=== PATIENT | female | born 1960 | race Caucasian/White ===

== ENCOUNTER 2016-08-15 04:03 | Emergency (ER) | payer OTHER ==
[~2016-08-15] VITALS: Ht 149.9 cm; Wt 87.3 kg
[~2016-08-15 04:03] MED LIST: 0.9126SP NS; ACET-171 PO; ACET1TAB42 PO; ALBU8.5H2 INHALATION; BECL8.7A6 IH; CHOL100043 PO; CITA20TA11 PO; DIAZ5TAB3 PO; FLUT9.9S NS; GABA-500 PO; HYDR-656 PO; HYDR50CA PO; KETO10DR4 AFFECT_EYE; LETR2.5T4 PO; LEVO50TA39 PO; LORA10CA PO; METO25TA3 PO; MULT-1018 PO; OMEP20CA11 PO; ONDA-54 PO; OXYC1TAB24 PO; POTA10CA42 PO; PROM25TA14 PO; ROPI1TAB3 PO; SILV25CR4 TP; TAMO20TA4 PO; TRAM50TA2 PO
[2016-08-15 04:07] VITALS: BP 146/74; PULSE 102; RESP 20; O2SAT 98
--- NOTE | 2016-08-15 04:14 | ED.REPORT ---
HPI-URI / Cough / Cold Date of Service Aug 15, 2016 ED Provider: Brett Thompson MD Patient is a 55 year old female with a history of breast cancer in remission who presents to the ED complaining of a persistent cough that has been present for the past 2.5 weeks, with increased difficulty breathing tonight. Patient also has a sore throat, which makes it painful for her to swallow. Patient states that she has nearly passed out due to coughing. Patient reports having swelling in her legs but denies leg pain, a history of congestive heart failure or fluid overload. The patient denies a fever or chills. Nursing Notes Stated Complaint: COUGH Chief Complaint: General Complaint Nursing Notes Reviewed: Yes Allergies: Coded Allergies: Penicillins (Verified Allergy, Severe, 08/15/16) latex (Verified Allergy, Severe, 08/15/16) prochlorperazine (Verified Allergy, Severe, 08/15/16) hydrocodone (Verified Allergy, Intermediate, rash, 08/15/16) diltiazem (Verified Allergy, Mild, edema, 08/15/16) TAPE (Verified Allergy, Unknown, 08/15/16) aspirin (Verified Allergy, Unknown, 08/15/16) ibuprofen (Verified Allergy, Unknown, 08/15/16) oxycodone (Verified Allergy, Unknown, Tolerates percocet, 08/15/16) Scheduled Albuterol HFA (Proair HFA) 8.5 Gm Hfa.aer.ad 2 PUFFS INHALATION q6hrs Beclomethasone Dipropionate (Qvar) 8.7 Gm Aer.w.adap 2 PUFFS IH BID Cholecalciferol (Vitamin D3) (Vitamin D) 1,000 Unit Tablet 1,000 UNIT PO DAILY Citalopram (Citalopram) 20 Mg Tablet 40 MG PO DAILY Fluticasone Propionate (Flonase Allergy Relief) 50 Mcg/Actuation [place].susp 2 SPRAYS NS DAILY Gabapentin (Gabapentin) 100 Mg Capsule 100 MG PO HS Ketotifen Fumarate (Alaway) 10 Ml Drops 10 ML AFFECT_EYE BID Letrozole (Letrozole) 2.5 Mg Tablet 2.5 MG PO DAILY Levothyroxine (Levoxyl) 50 Mcg Tablet 50 MCG PO DAILY Loratadine (Claritin) 10 Mg Capsule 10 MG PO DAILY Metoprolol Succinate ER (Toprol XL) 25 Mg Tablet 25 MG PO DAILY Multivitamin (Multi Vitamin Daily) 1 Each Tablet 1 EACH PO DAILY Omeprazole (Omeprazole) 20 Mg Capsule.dr 40 MG PO DAILY Potassium Chloride (Potassium Chloride) 10 Meq Capsule.er 10 MEQ PO DAILY TAKE WITH FOOD Ropinirole (Ropinirole) 1 Mg Tablet 1-2 MG PO HS Silver Sulfadiazine (Ssd) 25 Gm Cream..g. 25 GM TP BID Tamoxifen Citrate (Tamoxifen Citrate) 20 Mg Tablet 20 MG PO DAILY hydrOXYzine Hcl (HydrOXYzine Hcl) 25 Mg Tablet 50 MG PO HS Scheduled PRN 0.9 % Sodium Chloride (Nasal Mist) 126 Ml [place] 126 ML NS prn PRN PRN dry nose Acetaminophen (Acetaminophen) 500 Mg Tablet 500 MG PO Q6H PRN PRN For Pain Acetaminophen/Codeine 300-30mg (Acetaminophen/Codeine 300-30mg) 1 Tablet Tablet 1-2 TABLET PO Q4 PRN PRN For Moderate Pain Diazepam (Diazepam) 5 Mg Tablet 5 MG PO TID PRN PRN For Anxiety Hydroxyzine Pamoate (Vistaril) 50 Mg Capsule 50 MG PO TID PRN PRN For Anxiety or Agitation Ondansetron (Ondansetron) 8 Mg Tablet 8 MG PO q12 hr PRN PRN For Nausea Promethazine (Promethazine) 25 Mg Tablet 0 PO Q6H PRN PRN For Nausea Tramadol (Tramadol) 50 Mg Tablet 50-100 MG PO Q6 PRN PRN For Pain Tramadol (Tramadol) 50 Mg Tablet 50-100 MG PO Q4H PRN PRN For Pain oxyCODONE-Acetaminophen 5-325 mg (oxyCODONE-Acetaminophen 5-325 mg) 1 Each Tablet 0.5-2 TAB PO Q6H PRN PRN For Pain General Time Seen by MD: 04:09 Chief Complaint Cough, non-productive, Sore throat, Upper resp infection Hx Obtained From: Patient Arrived By: Walk-in Onset Occurred: More than a week ago... (1.5 weeks ago) Symptom Duration: Since onset Severity: Current: No pain currently Severity: Maximum: No pain Recent Healthcare: No recent doctor visit, No recent hospitalization Similar Sx Previous: No Past Medical History Past Medical History 1. Stage II, T2 N1 left-sided invasive ductal carcinoma in remission, s/p mastectomy 2. Hypothyroidism on Synthroid. 3. Anemia, macrocytic. 4. Pancreatitis 5. PVCs 6. 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 Musculoskeletal: Reports: Extremity swelling, Denies: Extremity pain Physical Exam Initial Vital Signs Vital Signs (First) Date Time Temp Pulse Resp B/P Pulse Ox O2 Delivery O2 Flow Rate FiO2 08/15/16 04:07 37.2 102 20 146/74 98 Room Air Initial VS: Reviewed, Vital signs abnormal Skin: Warm, Dry, No cyanosis Neurologic: Alert, Oriented, Nonfocal Psychiatric: Mood/affect normal, Behavior normal, Normal thought content General/Constitutional: Awake, Alert, No acute distress ENT: Airway patent, Mucous membranes moist Respiratory / Chest: Breath sounds = bilat, No respiratory distress, No rales, No rhonchi, No wheezing periodic dry cough Head / Eyes: Normocephalic, PERRL Neck: Supple, No JVD Cardiovascular: Heart rate NL, Regular rhythm, Heart sounds NL, No murmurs Abdomen: Soft, Non-tender, No guarding, No rebound Upper Extremity / MS: No deformity, Neurologic intact, Vascular intact Lower Extremity / Pelvis / MS: No deformity, Neurologic intact, Vascular intact +1 pitting edema of both ankles Interpretation & Diagnostics ECG Interpretation ECG Interpretation: Sinus rhythm, Rate 94 Ventricular trgeminy Left ventricular hypertrophy Time: 05:00 Interpreted by: ED physician Normal ECG Interpretation: No acute ischemic changes, No change from prior ECGs (01/27/2016) X-Ray Chest Interpretation Chest Xray Interpretation: Impression: No acute cardiopulmonary process. View: Portable Interpretation / Wet Read by: Wet read ED physician Reviewed Previous Films: No change Re-Eval/Medical Decision Med Decision/Clinical Course 55-year-old female who has cough for the last 2 and half weeks. Workup was initiated. There is some difficulty getting an IV and blood draw so we are still awaiting labs. Her care will be turned over at change shift to Dr. Franklin. Source of Hx: Old records Discharge & Departure Shift Change Sign-Out Patient Care Transferred: Yes Discussed Complaint(s): Yes Laboratory Evaluation: Ordered, not yet done Imaging Studies: Done, wet read by me Impression: Primary Impression: Cough Referrals: Michelle Perez MD (PCP) Care Transferred to: Dr. Franklin Care Transferred at: 06:00 Scribe Attestation Portions of this note were transcribed by Linda Mata. I, Dr. Thompson personally performed the history, physical exam and medical decision-making; I reviewed and confirmed the accuracy of the information in the transcribed note. Signed by: Anil Juarez, 08/15/2016 0548 copies to: Michelle Perez MD, Howard L MD Aug 15, 2016 04:14 Linda Mata Aug 15, 2016 04:30
[2016-08-15 05:45] VITALS: BP 146/76; PULSE 96; RESP 16; O2SAT 99
[2016-08-15 06:12] LABS: BASOPHILS % (AUTO) 0.2 % (0-3); EOSINOPHILS % (AUTO) 6.2 % (0-5); MONOCYTES % (AUTO) 9.9 % (4-12); Mean Corpuscular Hemoglobin 32.2 pg (27.0-35.0); Mean Corpuscular Volume 100.9 fL (81-100); NEUTROPHILS % (AUTO) 59.4 % (40-74); Platelet Count 237 bil/L (150-400)
[2016-08-15 06:23] LABS: TROPONIN T 0.01 ug/L (0.0-0.011)
[2016-08-15] MEDS ORDERED: GUAI400T57 PO (06:30)
[2016-08-15 07:28] VITALS: BP 127/60; PULSE 101; RESP 25; O2SAT 93
--- NOTE | 2016-08-15 09:00 | DRSVH ---
PROCEDURE: X-RAY CHEST ONE VIEW, PORTABLE ([id number]) INDICATIONS: cough TECHNIQUE: One view of the chest was acquired. COMPARISON: [facility], CT, CT CHEST W CON, 04/27/2016, 7:36. [facility], C R, XR CHEST 1VW (PORTABLE), 01/27/2016, 17:01. FINDINGS: Surgical changes and devices: None. Lungs and pleura: No pleural effusions or pneumothorax. Lungs are clear. Mediastinum: Mediastinal contours appear normal. Heart size is normal. Bones and chest wall: No suspicious bony lesions. Overlying soft tissues appear unremarkable. IMPRESSION: No acute cardiopulmonary disease. Dictated by: Mitchell Woods RRA Interpreted: Nedra Jay MD on 08/15/2016 at 8:59 Transcribed by: BREANNA on 08/15/2016 at 9:00 Approved by: Nedra Jay MD, PhD on 08/15/2016 at 17:14
[2016-10-31] MEDS ORDERED: RANI150T11 PO (10:36)
== END 2016-08-15 07:29 | disposition home or self-care (01) ==
LOC: SED 04:03
DX: J06.9 Acute upper respiratory infection, unspecified (principal); R05 Cough; M79.89 Other specified soft tissue disorders; K21.9 Gastro-esophageal reflux disease without esophagitis; E03.9 Hypothyroidism, unspecified; Z88.0 Allergy status to penicillin; Z88.5 Allergy status to narcotic agent; Z88.8 Allergy status to other drugs, medicaments and biological substances; Z91.040 Latex allergy status

== ENCOUNTER 2016-09-23 14:16 | Emergency (ER) | payer OTHER ==
[~2016-09-23] VITALS: Ht 149.9 cm; Wt 88.6 kg
[~2016-09-23 14:16] MED LIST changes: +GUAI400T57 PO
[2016-09-23 14:18] VITALS: BP 145/73; PULSE 88; RESP 15; O2SAT 97
--- NOTE | 2016-09-23 15:38 | ED.REPORT ---
HPI-Chest Pain 40 and Over Date of Service Sep 23, 2016 ED Provider: Doc,Ed MD The patient is a 55 year old developmentally delayed female with history of breast cancer in remission s/p mastectomy, hypothyroidism, anemia, pancreatitis , restless legs, peripheral edema, generalized anxiety disorder, and GERD, who presents to the emergency department complaining of left sided chest pressure and left axillary pain that began 3 days ago. The pain is intermittent and does resolve completely. She also complains of fatigue, tingling in both hands, fatigue, and feeling "overheated." She denies history of cardiac disease. She was seen at [facility] yesterday and was admitted for about 12 hours and discharged home with a referral for an outpatient stress test. Nursing Notes Stated Complaint: CHEST PAIN Chief Complaint: Chest Pain-Non Cardiac Nature Nursing Notes Reviewed: Yes Allergies: Coded Allergies: Penicillins (Verified Allergy, Severe, 08/15/16) latex (Verified Allergy, Severe, 08/15/16) prochlorperazine (Verified Allergy, Severe, 08/15/16) hydrocodone (Verified Allergy, Intermediate, rash, 08/15/16) diltiazem (Verified Allergy, Mild, edema, 08/15/16) TAPE (Verified Allergy, Unknown, 08/15/16) aspirin (Verified Allergy, Unknown, 08/15/16) ibuprofen (Verified Allergy, Unknown, 08/15/16) oxycodone (Verified Allergy, Unknown, Tolerates percocet, 08/15/16) Scheduled Albuterol HFA (Proair HFA) 8.5 Gm Hfa.aer.ad 2 PUFFS INHALATION q6hrs Beclomethasone Dipropionate (Qvar) 8.7 Gm Aer.w.adap 2 PUFFS IH BID Cholecalciferol (Vitamin D3) (Vitamin D) 1,000 Unit Tablet 1,000 UNIT PO DAILY Citalopram (Citalopram) 20 Mg Tablet 40 MG PO DAILY Fluticasone Propionate (Flonase Allergy Relief) 50 Mcg/Actuation [place].susp 2 SPRAYS NS DAILY Gabapentin (Gabapentin) 100 Mg Capsule 100 MG PO HS Ketotifen Fumarate (Alaway) 10 Ml Drops 10 ML AFFECT_EYE BID Letrozole (Letrozole) 2.5 Mg Tablet 2.5 MG PO DAILY Levothyroxine (Levoxyl) 50 Mcg Tablet 50 MCG PO DAILY Loratadine (Claritin) 10 Mg Capsule 10 MG PO DAILY Metoprolol Succinate ER (Toprol XL) 25 Mg Tablet 25 MG PO DAILY Multivitamin (Multi Vitamin Daily) 1 Each Tablet 1 EACH PO DAILY Omeprazole (Omeprazole) 20 Mg Capsule.dr 40 MG PO DAILY Potassium Chloride (Potassium Chloride) 10 Meq Capsule.er 10 MEQ PO DAILY TAKE WITH FOOD Ropinirole (Ropinirole) 1 Mg Tablet 1-2 MG PO HS Silver Sulfadiazine (Ssd) 25 Gm Cream..g. 25 GM TP BID Tamoxifen Citrate (Tamoxifen Citrate) 20 Mg Tablet 20 MG PO DAILY hydrOXYzine Hcl (HydrOXYzine Hcl) 25 Mg Tablet 50 MG PO HS Scheduled PRN 0.9 % Sodium Chloride (Nasal Mist) 126 Ml [place] 126 ML NS prn PRN PRN dry nose Acetaminophen (Acetaminophen) 500 Mg Tablet 500 MG PO Q6H PRN PRN For Pain Acetaminophen/Codeine 300-30mg (Acetaminophen/Codeine 300-30mg) 1 Tablet Tablet 1-2 TABLET PO Q4 PRN PRN For Moderate Pain Diazepam (Diazepam) 5 Mg Tablet 5 MG PO TID PRN PRN For Anxiety Guaifenesin (Guaifenesin) 400 Mg Tablet 400 MG PO QID PRN PRN For Cough Hydroxyzine Pamoate (Vistaril) 50 Mg Capsule 50 MG PO TID PRN PRN For Anxiety or Agitation Ondansetron (Ondansetron) 8 Mg Tablet 8 MG PO q12 hr PRN PRN For Nausea Promethazine (Promethazine) 25 Mg Tablet 0 PO Q6H PRN PRN For Nausea Tramadol (Tramadol) 50 Mg Tablet 50-100 MG PO Q6 PRN PRN For Pain Tramadol (Tramadol) 50 Mg Tablet 50-100 MG PO Q4H PRN PRN For Pain oxyCODONE-Acetaminophen 5-325 mg (oxyCODONE-Acetaminophen 5-325 mg) 1 Each Tablet 0.5-2 TAB PO Q6H PRN PRN For Pain General Time Seen by MD: 15:38 Chief Complaint Chest pain Hx Obtained From: Patient, Other family... (sister) Arrived By: Walk-in Sudden in Onset?: Yes Onset Occurred: 3 days ago Symptom Duration: Since onset Location: : Chest left: Shoulder left Quality: Painful, Pressure Severity: Current: Mild Severity: Maximum: Severe Recent Healthcare: Recent doctor visit, Recent hospitalization Similar Sx Previous: Yes Past Medical History Past Medical History Notes: Staff Cytotechnologist: Dr. Steen Past Medical History 1. Stage II, T2 N1 left-sided invasive ductal carcinoma in remission, s/p mastectomy 2. Hypothyroidism on Synthroid. 3. Anemia, macrocytic. 4. Pancreatitis 5. PVCs 6. Restless legs and peripheral edema 7. Developmentally delayed 8. Cholelithiasis 9. Gerd 10. 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 Physical Exam Initial Vital Signs Vital Signs (First) Date Time Temp Pulse Resp B/P Pulse Ox O2 Delivery O2 Flow Rate FiO2 09/23/16 14:18 36.8 88 15 145/73 97 Initial VS: Reviewed Head / Eyes: Atraumatic, Normocephalic, PERRL ENT: Mucous membranes moist, Conjunctiva normal, No scleral icterus Neck: Supple, Non-tender, Full range of motion Back: No CVA tenderness Lymphatic: No lymphadenopathy Extremities: Vascular intact, Neuro intact, No tenderness Skin: Warm, Dry, No cyanosis Neurologic: Alert, Oriented, Nonfocal Psychiatric: Mood/affect normal, Behavior normal, Normal thought content General/Constitutional: Awake, Alert, Cooperative Respiratory / Chest: Breath sounds NL, Breath sounds = bilat, No respiratory distress, No rales, No rhonchi, No wheezing, No stridor Partially reproducible chest pain. Cardiovascular: Heart rate NL, Regular rhythm, Heart sounds NL, No gallop, No murmurs, No rubs, Peripheral circulation NL, Pulses = bilaterally, No gross BP differential Lower Ext Edema: Positive: Bilateral 2+ Abdomen: Soft, Non-tender, McBurney's non-tender, No guarding, No rebound, BS normoactive, No distention, No hernia, No palpable mass Interpretation & Diagnostics Lab Results Interpretation Test 09/23/16 16:53 Troponin T < 0.010ug/L (0.0-0.011) Lipase 104U/L (13-60) ECG Interpretation ECG Interpretation: Sinus rhythm with a rate of 90 Unchanged from EKG taken on 09/22/[address] segment changes No acute ischemia Time: 17:22 Interpreted by: ED physician Re-Eval/Medical Decision Med Decision/Clinical Course The chest x-ray from 09/21 was normal. She had 3 serial troponins between the and at 0400 were all negative. Source of Hx: Old records, Family Time of Eval: 18:57 Re-Evaluation/Progress Note: Rechecked the patient. Discussed plan for discharge. All questions were addressed. Counseled Regarding: Diagnosis, Lab results, Need for follow-up, When/why to return to ED Discharge & Departure Primary Impression: Chest pain Chest pain type: unspecified Qualified Code: R07.9 - Chest pain, unspecified Disposition: Home Discharge Condition All VS Reviewed: Yes Condition: Stable Patient Instructions: Chest Pain (ED) Additional Instructions: Thank you for entrusting us with your care today. Your workup today included: labs and an EKG. We also reviewed your records from your recent hospitalization at [facility]. At this point your workup is reassuring. It is very important that you followup with your regular doctor or Dr. Steen to further investigate these symptoms. Call tomorrow morning to schedule an appointment. Please return to the emergency department for any new or concerning symptoms. Your lipase is mildly elevated indicating some minimal inflammation of your pancreas; this should be checked again in a few days or sooner if you have much worse abdominal pain. Referrals: Michelle Perez MD (PCP) Gena Steen MD Scribchandler Attestation Portions of this note were transcribed by Missy Birmingham. I, Dr. Franklin personally performed the history, physical exam and medical decision-making; I reviewed and confirmed the accuracy of the information in the transcribed note. Signed by: Anil Mata, 09/23/2016 at 1905. copies to: Michelle Perez MD; Gena Steen MD, Kirk H MD Sep 23, 2016 15:38 Vinnie,Missy Matthew Sep 23, 2016 15:40
[2016-10-31] MEDS ORDERED: RANI150T11 PO (10:36)
== END 2016-09-23 19:45 | disposition home or self-care (01) ==
LOC: SED 14:16
DX: R07.9 Chest pain, unspecified (principal); M79.622 Pain in left upper arm; R53.83 Other fatigue; E03.9 Hypothyroidism, unspecified; D53.9 Nutritional anemia, unspecified; G25.81 Restless legs syndrome; K21.9 Gastro-esophageal reflux disease without esophagitis; F41.1 Generalized anxiety disorder; Z85.3 Personal history of malignant neoplasm of breast; Z90.12 Acquired absence of left breast and nipple; Z87.898 Personal history of other specified conditions; Z88.0 Allergy status to penicillin; Z88.8 Allergy status to other drugs, medicaments and biological substances; Z88.5 Allergy status to narcotic agent; Z88.6 Allergy status to analgesic agent

== ENCOUNTER 2016-10-17 17:27 | Inpatient (IN) | payer OTHER, MEDICAID ==
[~2016-10-17] VITALS: Ht 149.9 cm; Wt 88.0 kg
[2016-10-17 17:30] VITALS: BP 150/80; PULSE 77; RESP 16; O2SAT 98
--- NOTE | 2016-10-17 18:05 | ED.REPORT ---
HPI-Chest Pain 40 and Over Date of Service October 17, 2016 ED Provider: Lino Martinez MD A 56 year old developmentally-delayed female with a medical history including hypothyroidism, PVCs, GERD, and left-sided ductal carcinoma s/p mastectomy presents to the ED with waxing and waning chest pain onset 11:00 this morning after receiving the injection for a stress test at [facility]. The stress test imaging was not completed, and patient was immediately seen in the [facility] emergency room where she received a negative cardiac work-up. However, the patient's chest pain continues to persist, lasting up to 30 minutes at a time. It is rated 7/10 at the worst and described as "tightness," with radiation to her left jaw and left arm. Associated symptoms include abdominal pain, headache , and one week of hematochezia. The patient denies diaphoresis, nausea, dysuria , hematuria, shortness of breath, or other symptoms. The patient was given ASA and Nitro at onset, which relieved her pain. She presents now with residual 3/ 10 chest pain. Nursing Notes Stated Complaint: CHEST PAIN Chief Complaint: Chest Pain Nursing Notes Reviewed: Yes ([employer], [employer] not reconciled) Allergies: Coded Allergies: Penicillins (Verified Allergy, Severe, 10/17/16) latex (Verified Allergy, Severe, 10/17/16) prochlorperazine (Verified Allergy, Severe, 10/17/16) hydrocodone (Verified Allergy, Intermediate, rash, 10/17/16) diltiazem (Verified Allergy, Mild, edema, 10/17/16) TAPE (Verified Allergy, Unknown, 10/17/16) aspirin (Verified Allergy, Unknown, 10/17/16) ibuprofen (Verified Allergy, Unknown, 10/17/16) oxycodone (Verified Allergy, Unknown, Tolerates percocet, 10/17/16) Scheduled Cholecalciferol (Vitamin D3) (Vitamin D) 1,000 Unit Tablet 1,000 UNIT PO DAILY Citalopram (Citalopram) 40 Mg Tablet 40 MG PO HS Fexofenadine (Fexofenadine) 180 Mg Tablet 180 MG PO DAILY Fluticasone Furoate (Arnuity Ellipta) 100 Mcg Blst.w.dev 1 PUFF INHALATION DAILY Fluticasone Propionate (Flonase Allergy Relief) 50 Mcg/Actuation [place].susp 2 SPRAYS NS DAILY Furosemide (Furosemide) 40 Mg Tablet 40 MG PO DAILY Gabapentin (Gabapentin) 100 Mg Capsule 100 MG PO HS Lansoprazole DR (Prevacid) 30 Mg Capsule 30 MG PO DAILY Levothyroxine (Levoxyl) 50 Mcg Tablet 50 MCG PO DAILY Metoprolol Succinate ER (Toprol XL) 25 Mg Tablet 25 MG PO DAILY Multivits&Mins/FA/Coenzyme Q10 (Aquadeks Chewable Tablet) 1 Each Tab.chew 1 EACH PO DAILY Ropinirole (Ropinirole) 1 Mg Tablet 2 MG PO HS Tamoxifen Citrate (Tamoxifen Citrate) 20 Mg Tablet 20 MG PO DAILY Scheduled PRN 0.9 % Sodium Chloride (Nasal Mist) 126 Ml [place] 2 SPRAYS NS BID PRN PRN dry nose Acetaminophen (Pain Relief) 325 Mg Capsule 650 MG PO QID PRN PRN For Pain Albuterol Sulfate (Ventolin HFA Inhaler) 200 Puff/18 Gm Inhaler 2 PUFFS INHALATION QID PRN PRN For Shortness of Breath Bisacodyl (Dulcolax) 5 Mg Tablet.dr 10 MG PO DAILY PRN PRN For Constipation Diazepam (Diazepam) 2 Mg Tablet 2 MG PO BID PRN PRN anx Tramadol (Tramadol) 50 Mg Tablet 50-100 MG PO Q6 PRN PRN For Pain General Time Seen by MD: 18:02 Chief Complaint Chest pain Hx Obtained From: Patient Arrived By: Walk-in Sudden in Onset?: Yes Onset Occurred: 5 - 8 hours ago Symptom Duration: Since onset Location: : Chest left: Chest right Quality: Painful (Tightness) Radiation: : Arm left: Jaw Severity: Current: Moderate Severity: Maximum: Moderate Context Related History: Reports: GERD Recent Healthcare: Recent doctor visit Past Medical History Past Medical History Notes: Lighter: Dr. Steen Past Medical History 1. Stage II, T2 N1 left-sided invasive ductal carcinoma in remission, s/p mastectomy 2. Hypothyroidism on Synthroid. 3. Anemia, macrocytic. 4. Pancreatitis 5. PVCs 6. Restless legs and peripheral edema 7. Developmentally delayed 8. Cholelithiasis 9. Gerd 10. 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 Female: Denies: Dysuria, Hematuria Physical Exam Initial Vital Signs Vital Signs (First) Date Time Temp Pulse Resp B/P Pulse Ox O2 Delivery O2 Flow Rate FiO2 10/17/16 17:30 35.9 77 16 150/80 98 Room Air Initial VS: Reviewed, Vital signs normal Head / Eyes: Atraumatic, Normocephalic ENT: Conjunctiva normal, No scleral icterus Neck: Supple, Full range of motion Skin: Warm, Dry, No cyanosis Neurologic: Alert, Oriented, Nonfocal Psychiatric: Mood/affect normal, Behavior normal, Normal thought content General/Constitutional: Awake, Alert, No acute distress Respiratory / Chest: Breath sounds NL, Breath sounds = bilat, No respiratory distress Cardiovascular: Heart rate NL, Regular rhythm, Heart sounds NL Trace edema in bilateral lower extremities Abdomen: Soft, Non-tender Interpretation & Diagnostics Interpretation & Diagnostics: Labs performed today at [facility] including: WBC 3.2, hemoglobin 12, hematocrit 36.9, platelet count 185 Sodium 141, potassium 4.1, chloride 108, CO2 23, and 20, creatinine 1.27, glucose 80, ALT 22, AST 25, total bili 0.3, alkaline phosphatase 92 Troponin less than 0.010, repeated troponin less than 0.010 INR 1 URINE DIPSTICK: Bedside Urine Specific Dewitt * 1.015 Bedside Urine pH * 5 Bedside Urine Leukocyte Esterase * Negative Bedside Urine Nitrite * Negative Bedside Urine Protein * Negative Bedside Urine Glucose * Normal Bedside Urine Ketones * Negative Bedside Urine Urobilinogen * Normal Bedside Urine Bilirubin * Negative Bedside Urine Occult Blood * Negative Urine to Lab * Yes Lab Results Interpretation Result Diagram: 10/17/16 2104 Test 10/17/16 18:07 10/17/16 19:00 Troponin T < 0.010ug/L (0.0-0.011) Hold Bae Top Tube Received (Received) Hold Urine Received (Received) Lab Results Interpretation: urine dip negative ECG Interpretation ECG Interpretation: Sinus rhythm rate 71 Occasional PVCs Mild left ventricular hypertrophy, unchanged from 09/2016 No clear acute ischemic changes evident Time: 17:45 Interpreted by: ED physician ECG Interpretation: Unchanged from prior today Sinus rhythm rate 80 Occasional PVCS Mild left ventricular hypertrophy No acute interval change Time: 19:54 Interpreted by: ED physician Re-Eval/Medical Decision Med Decision/Clinical Course This is a 56-year-old female who is mild developmental delay making a complex history to obtain, presents with a concern for chest pressure discomfort, radiating to the left jaw and left arm associated shortness of breath, but is not clearly exertional. The story changes with different interview at times, making it even more difficult-but the patient does not have a known history of coronary disease, there was recent concern and the patient was undergoing initial injection for a stress test today at [facility], developed chest discomfort , and was sent to the [facility] emergency department where she had serial enzymes that were both negative, and then discharge with plans to return tomorrow to complete the stress test. She had waxing and waning chest discomfort, and so came to the emergency department here. She is still having some left-sided chest discomfort on arrival. And she uses language that does sound concerning, although the patient clinically appears quite well throughout. Her EKG reveals no clear acute ischemic changes. She received a total to supplemental nitroglycerin with relief of the chest discomfort, others she developed trace nausea and a mild headache which she received medication. She received aspirin prior to arrival earlier today. Lab work was also obtained earlier today in terms of CBC and chemistries, so these were not repeated. A troponin was obtained and was normal. At this point have a challenging patient to fully risk stratify, he does have a mild developmental delay, who does have risk factors, and uses language that is concerning-and has not completed her cardiac evaluation was already been seen once sedated outside emergency department for chest pain, was had recurrence of symptoms and now presents them or department. The plan at this point as an observation admission for continued monitoring, I discussed with cardiology and if her enzymes remain negative, we will proceed to stress testing here at this hospital tomorrow. We have called [facility] to notify them that the patient's being admitted. The patient's admitted in good condition. Source of Hx: Old records Time of Eval: 19:16 Patient Status: Condition unchanged Re-Evaluation/Progress Note: Patient's pain persists. Time of Eval: 19:36 Patient Status: Condition improved Re-Evaluation/Progress Note: Patient's chest pain is improving after Nitro but her headache has worsened and she has developed nausea. Time of Eval: 19:50 Patient Status: Condition improved Re-Evaluation/Progress Note: Patient's chest pain has resolved. She has an appointment for continued Stress Test at [facility] tomorrow morning. Discussed with patient x-ray and lab results, diagnosis, and plan for admit. Patient agrees with plan for care and all questions were addressed. Time of Eval: 20:16 Patient Status: Condition improved Re-Evaluation/Progress Note: Nursing supervisor multifocal lens, Wayne, at [facility] was informed that the patient will not be arriving for her stress test tomorrow. Consultation #1: Referral / Consult Name: Silvio Gordon MD Consulted With: Cardiology Call Returned at: 20:19 Train Dispatcher: Agrees with eval, Agrees with plan Note: Discussed patient's case Consultation #2: Referral / Consult Name: Ryland Mcarthur MD Consulted With: Hospitalist Call Returned at: 20:18 Train Dispatcher: Agrees with eval, Agrees with plan, Accepts admit Differential Diagnosis: Positive: Chest pain, acute, Negative: Aortic dissection, Congestive heart failure, Gun shot wound chest, Pneumomediastinum, Pneumonia, Pneumothorax, Pulmonary edema, Pulmonary embolism , Stab wound chest Counseled Regarding: Diagnosis, Lab results, Need for admission Discharge & Departure Primary Impression: Chest pain Chest pain type: unspecified Qualified Code: R07.9 - Chest pain, unspecified Additional Impression: Acute coronary syndrome Disposition: ADMITTED TO HOSPITAL Discharge Condition All VS Reviewed: Yes Condition: Improved Referrals: Michelle Perez MD (PCP) Gena Steen MD Attestation Portions of this note were transcribed by Brittney Alejandro. I, Dr. Martinez, personally performed the history, physical exam, and medical decision-making; I reviewed and confirmed the accuracy of the information in the transcribed note. Signed by: Anil Reardon, 10/17/2016, 21:10 copies to: Michelle Perez MD; Gena Steen MD, Matthew F MD October 17, 2016 18:04 BRITTNEY ALEJANDRO October 17, 2016 18:17
[2016-10-17] MEDS ORDERED: Nitroglycerin 2% 1 Gm Ointment TOPICAL SCH (18:20)
[2016-10-17] MEDS ORDERED: Ondansetron 2 mg/mL 2 mL Inj IVPUSH ONE (19:40)
[2016-10-17] MEDS ORDERED: HYDROmorphone 0.5 mg/0.5 mL iSecure Syringe IVPUSH ONE (19:40)
[2016-10-17] MEDS ORDERED: CITA40TA13 PO (19:43)
[2016-10-17] MEDS ORDERED: ALBU18HF INHALATION (19:43)
[2016-10-17] MEDS ORDERED: FLUT100B INHALATION (19:44)
[2016-10-17] MEDS ORDERED: FEXO-106 PO (19:44)
[2016-10-17] MEDS ORDERED: FURO40TA4 PO (19:44)
[2016-10-17] MEDS ORDERED: MULT-909 PO (19:44)
[2016-10-17] MEDS ORDERED: BISA-67 PO (19:48)
[2016-10-17] MEDS ORDERED: LANS30CA14 PO (19:48)
[2016-10-17] MEDS ORDERED: DIAZ2TAB2 PO (19:48)
[2016-10-17] MEDS ORDERED: ACET325C4 PO (19:49)
[2016-10-17] MEDS ORDERED: Atropine 1 mg/10 mL (Code) Syringe IVPUSH PRN (20:50)
--- NOTE | 2016-10-17 21:03 | PCM.HPMED ---
Subjective Date of Service October 17, 2016 Primary Provider: Admitting Physician: Ryland Mcarthur MD Primary Care Physician: Michelle Perez MD Attending Physician: Ryland Mcarthur MD Chief Complaint: Chest pain following aborted stress test History of Present Illness: Delfina Euceda is a 56 year old woman with a PMH of Stage II, T2 N1 left-sided invasive ductal carcinoma in remission s/p mastectomy, Hypothyroidism, Macrocytic anemia, pancreatitis, RLS, PVCs, GERD, gallstones, mild developmental delay, and depression who presents following an aborted stress test at [facility] which was stopped due to chest pain with radiation to the jaw and associated diaphoresis. She was taken to the [facility] ER following manifestation of symptoms and given Nitro and ASA which transiently alleviated her symptoms, Trop was negative x2 at [facility]; however given the concerning nature of the patient' s symptoms and the need to complete her stress test the patient was transferred to [facility] for further evaluation and completion of her stress test tomorrow. She states that her chest pain has been waxing and waning since onset, responsive to Nitro, and she has begun to feel nauseous which was responsive to Zofran. She states her current pain level is approximately 3/10, but that she feels as if it could return at any moment. In the ED at [facility] the patient has an additional negative Trop, and an ECG which was unchanged from her prior ECG and not indicative of any acute ST changes. Cardiology has been made aware of the patient and will follow up to complete her stress test tomorrow. Review of Systems: Comprehensive ROS negative except as listed above in the HPI Allergies Coded Allergies: Penicillins (Verified Allergy, Severe, 10/17/16) latex (Verified Allergy, Severe, 10/17/16) prochlorperazine (Verified Allergy, Severe, 10/17/16) hydrocodone (Verified Allergy, Intermediate, rash, 10/17/16) diltiazem (Verified Allergy, Mild, edema, 10/17/16) TAPE (Verified Allergy, Unknown, 10/17/16) aspirin (Verified Allergy, Unknown, 10/17/16) ibuprofen (Verified Allergy, Unknown, 10/17/16) oxycodone (Verified Allergy, Unknown, Tolerates percocet, 10/17/16) Home Medications Scheduled Cholecalciferol (Vitamin D3) (Vitamin D) 1,000 Unit Tablet 1,000 UNIT PO DAILY Citalopram (Citalopram) 40 Mg Tablet 40 MG PO HS Fexofenadine (Fexofenadine) 180 Mg Tablet 180 MG PO DAILY Fluticasone Furoate (Arnuity Ellipta) 100 Mcg Blst.w.dev 1 PUFF INHALATION DAILY Fluticasone Propionate (Flonase Allergy Relief) 50 Mcg/Actuation [place].susp 2 SPRAYS NS DAILY Furosemide (Furosemide) 40 Mg Tablet 40 MG PO DAILY Gabapentin (Gabapentin) 100 Mg Capsule 100 MG PO HS Lansoprazole DR (Prevacid) 30 Mg Capsule 30 MG PO DAILY Levothyroxine (Levoxyl) 50 Mcg Tablet 50 MCG PO DAILY Metoprolol Succinate ER (Toprol XL) 25 Mg Tablet 25 MG PO DAILY Multivits&Mins/FA/Coenzyme Q10 (Aquadeks Chewable Tablet) 1 Each Tab.chew 1 EACH PO DAILY Ropinirole (Ropinirole) 1 Mg Tablet 2 MG PO HS Tamoxifen Citrate (Tamoxifen Citrate) 20 Mg Tablet 20 MG PO DAILY Scheduled PRN 0.9 % Sodium Chloride (Nasal Mist) 126 Ml [place] 2 SPRAYS NS BID PRN PRN dry nose Acetaminophen (Pain Relief) 325 Mg Capsule 650 MG PO QID PRN PRN For Pain Albuterol Sulfate (Ventolin HFA Inhaler) 200 Puff/18 Gm Inhaler 2 PUFFS INHALATION QID PRN PRN For Shortness of Breath Bisacodyl (Dulcolax) 5 Mg Tablet.dr 10 MG PO DAILY PRN PRN For Constipation Diazepam (Diazepam) 2 Mg Tablet 2 MG PO BID PRN PRN anx Tramadol (Tramadol) 50 Mg Tablet 50-100 MG PO Q6 PRN PRN For Pain PMH 1. Stage II, T2 N1 left-sided invasive ductal carcinoma in remission, s/p mastectomy 2. Hypothyroidism on Synthroid. 3. Anemia, macrocytic. 4. Pancreatitis 5. PVCs 6. Restless legs and peripheral edema 7. Developmentally delayed 8. Cholelithiasis 9. Gerd 10. Depression Surgical History Left mastectomy Jaw reconstruction Sung fundoplication for hiatal hernia repair Toe surgery on both fifth digits Family History Father has ulcerative colitis Grandfather had diabetes and of [place] in his 80s Social History Hx Alcohol Use: No Hx Substance Use: No Hx Tobacco Use: No Smoking Status: Never Smoker Exam Vital Signs Vital Sign - Last Date Time Temp Pulse Resp B/P Pulse Ox O2 Delivery O2 Flow Rate FiO2 10/17/16 17:30 35.9 77 16 150/80 98 Room Air Exam Gen: A/O x3 pleasant cooperative woman in NAD Neck: Supple, non tender, no JVD HEENT: PERRL. EOMI, no scleral icterus, no conjuntival pallor CV: frequent PVCs, regular rate, no murmurs rubs or gallops Resp: Lungs CTA BL, no wheezing rales or rhonchi Abd: Soft, non tender, no organomegaly Extr: Moderate BL LE non pitting edema, no cyanosis or clubbing Neuro: CN 2-12 grossly intact, no focal neurologic deficit. Lab and Diagnostics Labs Item Value Date Time Troponin T < 0.010 ug/L 10/17/161806 Assessment & Plan Delfina Euceda is a 56 year old woman with a PMH as listed above, who had to abort a stress test at [facility] for chest pain with radiation to the left arm and jaw with associated diaphoresis. Serial Trop negative x3 between [facility] and out ED , however, given the concerning nature of her symptoms and her inability to complete her stress test she presented to [facility] for completion of her stress test tomorrow and trending of her cardiac biomarkers to ensure there is no cardiac process underlying her pain. 1. Chest pain, Present on admission, acute. Active -Trop negative x3 between [facility] and our ED -Continue to trend Trop q6 -CK CKMB pending -ECG reassuring and unchanged from prior -Complete pharmacologic stress test tomorrow AM -ECHO tomorrow AM -Cardiology is aware of this patient and we appreciate their input -Nitro Patch in place and has been efficacious thus far -Tele monitoring 2. Hypothyroid, present on admission, chronic. Active -Continue home Levothyroxine 50 mcg 3. Frequent PVCs, present on admission, chronic. Active -Continue home Metoprolol XL 25 mg 4. Depression with anxiety, present on admission, chronic. Active -Continue home Citalopram -Continue home Diazepam PRN 5. RLS, present on admission, chronic. Active -Continue home Ropinirole 6. Chronic pain, present on admission.Active -Continue home Tramadol -Continue home Gabapentin 7. HTN, present on admission, active -Continue home Lasix 40mg -Metoprolol as above Code Status: FULL CODE Disposition: Observation, patient will likely be able to DC home with no needs following stress test tomorrow. Pain Evaluation: Adequate Pain Control GI Prophylaxis: Proton Pump Inhibitor VTE Prophylaxis: Sub-Q Heparin (Unfractionated) VTE Mechanical Devices: Intermittant Pneumatic CD Resuscitation Status: CPR: Attempt Resuscitation Attending Statement The patient was seen and examined together with Dr. Carrera on 10/17 and I agree with the history, exam and plan as outlined in the note above. Boo Carrera DO October 17, 2016 21:03 Ryland Mcarthur MD October 18, 2016 01:33
[2016-10-17 21:36] LABS: BASOPHILS % (AUTO) 0.2 % (0-3); MONOCYTES % (AUTO) 9.8 % (4-12); Mean Corpuscular Hemoglobin 32.8 pg (27.0-35.0); NEUTROPHILS % (AUTO) 58.1 % (40-74); Platelet Count 192 bil/L (150-400)
[2016-10-17 21:40] VITALS: BP 122/69; PULSE 75; RESP 16; O2SAT 99
[2016-10-17] MEDS ORDERED: diphenhydrAMINE 25 mg Capsule PO ONE (22:00)
[2016-10-17 22:13] LABS: Creatine Kinase 96 U/L (21-215); Magnesium 1.7 mg/dL (1.6-2.6)
[2016-10-17] MEDS: Alum-Mag Hydrox-Simeth 30 mL Suspension PO PRN (22:34)
[2016-10-17] MEDS: 0.9% Sodium Chloride 1,000 ML IV SCH (22:34)
[2016-10-18] VITALS (11 sets, daily range): BP systolic 114–133; BP diastolic 50–74; PULSE 56–87; RESP 16–20; O2SAT 96–100
[2016-10-18] MEDS: Heparin 5,000 Unit/mL Inj SUBQ SCH ×3 (00:30→16:12)
[2016-10-18] MEDS: Sodium Chloride LOK Flush 10 mL Syringe IVFLUSH SCH ×4 (00:30→22:46)
[2016-10-18] MEDS: Ondansetron 2 mg/mL 2 mL Inj IVPUSH PRN ×2 (01:40→08:39)
[2016-10-18] MEDS ORDERED: Pantoprazole 20 mg ER24 Tablet PO SCH (07:30)
[2016-10-18 08:26] LABS: BASOPHILS % (AUTO) 0 % (0-3); MONOCYTES % (AUTO) 6.1 % (4-12); Mean Corpuscular Hemoglobin 33.2 pg (27.0-35.0); Mean Corpuscular Volume 102.2 fL (81-100); NEUTROPHILS % (AUTO) 80.6 % (40-74); Platelet Count 204 bil/L (150-400)
[2016-10-18] MEDS: ARNUITY ELLIPTA INHALATION SCH (08:30)
[2016-10-18] MEDS ORDERED: Pantoprazole 4 mg/mL 10 mL Inj IVPUSH ONE (08:40)
[2016-10-18 09:34] LABS: Phosphorus 2.3 mg/dL (2.5-4.9)
--- NOTE | 2016-10-18 10:28 | PCM.PNMED ---
Subjective Date of Service October 18, 2016 Subjective upon lenghty conversation, pt stated that her epigastric pain was similar to pain from pancreatitis in the past. denied alcohol drinking. had vomiting once overnight, c/o severe epigastric cramps radiating to her back , intermittent to her chest, however, pain is different from her pain from heart burn. lipase level 3750 this morninig denied having heart disease. took aspirin at [facility], thinks that made her sick. couldn't tolerate aspirin due to upset stomach CT abd ordered to visiualize pancreas Exam Vital Signs Vital Sign - Last Date Time Temp Pulse Resp B/P Pulse Ox O2 Delivery O2 Flow Rate FiO2 10/18/16 08:54 83 16 98 Room Air 10/18/16 06:08 36.6 127/73 Exam NAD, mildly distressed due to pain no JVD, MMM, no LAD RRR, nl s1, s2 no mrg CTAB, no w,c S,ND,epigastric tenderness, hypoactive BS+ warm,trace edema bilaterally, pulses 2/2 IVs and Medications Medications Reviewed: Medications were reviewed in detail Lab and Diagnostics Result Diagram: 10/18/1681910/18/16819 Assessment & Plan Delfina Euceda is a 56 year old woman with a PMH as listed above, who had to abort a stress test at [facility] for chest pain with radiation to the left arm and jaw with associated diaphoresis. Serial Trop negative x3 between [facility] and out ED , however, given the concerning nature of her symptoms and her inability to complete her stress test she presented to [facility] for completion of her stress test tomorrow and trending of her cardiac biomarkers to ensure there is no cardiac process underlying her pain. acute, active #nausea, epigastric pain, probable chest pain, POA, given increased lipase, no signs of ACS-EKG chg, serial trops neg despite hormonal tx. symptoms likely due to acute pancreatitis. no ETOH abuse, presumably from Gall stones, TG level WNL. no SIRS, renal function WNL, not in criteria of severe pancreatitis. -will finish stress test as scheduled. -increase IVF 150cc/hr, -control pain with dilaudid prn -pantoprazole 40mg iv bid -NPO for now -TTE, telemetry chronic, stable #hx of breast CA, stageII s/p mastectomy, continue tamoxifen, 2. Hypothyroid, present on admission, Continue home Levothyroxine 50 mcg 3. Frequent PVCs, present on admission, chronic. Continue home Metoprolol XL 25 mg 4. Depression with anxiety, present on admission, chronic. Active -Continue home Citalopram -Continue home Diazepam PRN 5. RLS, present on admission, chronic. Active -Continue home Ropinirole 6. Chronic pain, present on admission.Active -Continue home Tramadol -Continue home Gabapentin 7. HTN, present on admission, active -Continue home Lasix 40mg -Metoprolol as above Code Status: FULL CODE dispo:Patient likely in inpatient status with expectation of inpatient therapy for more than 2 midnights diet:NPO dvt ppx:LMWH GI Prophylaxis: Proton Pump Inhibitor VTE Prophylaxis: Sub-Q Heparin (Unfractionated) VTE Mechanical Devices: Intermittant Pneumatic CD Resuscitation Status: CPR: Attempt Resuscitation Time spent 35min Sully Lentz MD October 18, 2016 10:18
[2016-10-18] MEDS: MeTOProlol XL 25 mg ER24 Tablet PO SCH (11:10)
[2016-10-18] MEDS: 0.9% Sodium Chloride 1,000 ML IV SCH ×3 (11:12→21:20)
[2016-10-18] MEDS: Albuterol 2.5 mg/3 mL Inhalation Solution NEB PRN (11:29)
--- NOTE | 2016-10-18 15:32 | DRSVH ---
PROCEDURE: CT ABDOMEN AND PELVIS WITH CONTRAST ([id number]) INDICATIONS: possible pancreatitis TECHNIQUE: After the administration of oral and intravenous contrast, 5 mm thick sections acquired from the diap hragms to the symphysis. 5 mm thick coronal and sagittal reformats were performed. For radiation do se reduction, the following was used: automated exposure control, adjustment of mA and/or kV accordi ng to patient size. COMPARISON: [facility], CT, ABD/PELVIS W/CON (PN), 04/14/2014, 2:25. FINDINGS: Image quality: Diagnostic. ABDOMEN: Lung bases: Lung bases are clear. Heart size is slightly prominent in size. Postoperative changes of the left chest are suggestive of prior mastectomy with surgical flap placement. No associated loc ulated fluid collections are evident. Solid organs: The liver is mildly hypodense when compared to the spleen. Small gallstones are seen within the dependent aspect of the gallbladder. No intrahepatic or extrahepatic biliary dilatation i s evident. The spleen, adrenals, and kidneys are within normal limits. The pancreas is slightly enl arged. Mild edema is noted about the head and uncinate process of the pancreas predominantly. Expec crow enhancement of the pancreas is noted. No peripancreatic fluid collections are appreciated. The splenic vein, superior mesenteric artery, splenic artery, and superior mesenteric vein are intact and within normal limits. Peritoneum and bowel: There is a moderate-sized hiatal hernia. Otherwise, the stomach, duodenum, and remainder of the small bowel loops are nondilated. Moderate residual stool is identified within the colon. There is mild distal colonic diverticulosis without surrounding inflammation to suggest acut e diverticulitis. No significant free fluid is evident. There is no loculated fluid collection or f ree air. Nodes and vessels: No retroperitoneal or mesenteric adenopathy. Aorta and inferior vena cava are no rmal in caliber. There is mild aortic atherosclerosis. Bones: No suspicious osseous lesions are acute fractures of the imaged thoracolumbar spine are presen t. Age-appropriate degenerative changes of the spine are noted. PELVIS: Genitourinary: Bladder wall thickness is normal. The uterus and ovaries are not enlarged. Miscellaneous: No inguinal hernias or adenopathy. No free fluid, loculated fluid collection or free air is evident. Bones: A small sclerotic lesion involving the superior left pubic ramus is unchanged. Mild irregula rity along the inner table of the left iliac wing also is unchanged. No new pelvic lesions are evide nt. There are no acute pelvic fractures. IMPRESSION: 1. Acute pancreatitis without definite pancreatitis complications, such as abscess, necrosis, or pse udocyst formation. 2. Cholelithiasis. 3. Probable hepatic steatosis. 4. Moderate-sized hiatal hernia. 5. Mild enlargement of the heart. 6. Postoperative changes of the left breast. Dictated by: King Hughes M.D. on 10/18/2016 at 14:24 Approved by: King Hughes M.D. on 10/18/2016 at 14:31
[2016-10-18] MEDS: Pantoprazole 20 mg ER24 Tablet PO SCH (16:12)
--- NOTE | 2016-10-18 20:17 | DRSVH ---
[facility] [address] [place] [address] Echocardiogram Report Name: VLAD ENCINAS Date: 10/18/2016 Height: 59 in Hospital Exam Location: [facility] Weight: 194 lb Gender: Female BSA: 1.8 m2 : 1960 Age: 56 yrs BP: 127/73 mmHg Reason For Study: Chest pain Ordering Physician: HOSPITALIST [facility] Performed By: Aryan Acosta Referring Physician: TAMMY CHRISTOPHER Interpretation Summary 1. Normal left ventricular size, normal wall thickness with an estimated EF of 50-55% 2. Grossly normal right ventricular size and systolic function. 3. Borderline mitral valve prolapse with an eccentric regurgitant jet (at least moderate in severity). 4. Mild to moderate tricuspid regurgitation. The estimated RVSP is 34 mm Hg On the previous study, the mitral regurgitation was graded as mild Procedure: A two-dimensional transthoracic echocardiogram with color flow and Doppler was performed. Parasternal images are fair; apical images are difficult. A contrast injection of Definity was performed to improve assessment of LV function. Comparison is made with the echocardiogram of 04/14/15. The heart rate ranged between 67-82 bpm during the study. Left Ventricle: The left ventricle is mildly dilated. There is normal left ventricular wall thickness. The ejection fraction is estimated to be 50-55%. No obvious wall motion abnormalities appreciated. Right Ventricle: The right ventricle grossly appears normal in size with probable normal systolic function. Atria: The left atrium is mildly dilated. Right atrial size is normal. The interatrial septum is intact with no evidence for an atrial septal defect. Mitral Valve: The mitral valve leaflets appear borderline thickened, but open well. There is borderline mitral valve prolapse. There is a eccentric jet of MR. Given the transient E/A reversal, the MR is likely no greater than moderate. Aortic Valve: The aortic valve is trileaflet. The aortic valve opens well. No aortic regurgitation is present. Tricuspid Valve: The tricuspid valve leaflets are thin and pliable. There is mild to moderate tricuspid regurgitation. The right ventricular systolic pressure is estimated at 34 mmHg assuming a right atrial pressure of 3 mm Hg. Pulmonic Valve: The pulmonic valve is not well visualized. Great Vessels: The aortic root is normal size. The dimensions of the ascending aorta are normal. The pulmonary artery is normal size. The IVC is of normal diameter and collapses greater than 50% with a sniff. This suggests a low right atrial pressure of 3 mm Hg. Pericardium/ Pleura There is no pericardial effusion. There is no pleural effusion. MMode/2D Measurements & Calculations LVIDd: 5.2 cm RA long axis: 4.6 cm LVOT diam: 2.1 cm LVIDs: 3.4 cmLA A2 area: 19.9 cm Ao root diam FS: 34.0 % LA A4 area: 23.6 cm RA area: 10.9 cm EPSS: 0.58 cmLA length (vol) RA vol: 22.1 ml asc Aorta Diam IVSd: 0.99 cm RA : 12.1 ml/m2 LVPWd: 1.0 cmLA vol: 71.3 ml Ao Arch Diam (Prox LA vol index Trans): 2.4 cm : 39.2 ml/m2 EDV(MOD-sp2) LV frederick. diameter/BSA LV sys. diameter/BSA (cm/m^2): 2.8 (cm/m^2): 1.9 ESV(MOD-sp2) EF(MOD-sp2) Doppler Measurements & Calculations Ao V2 max MV E max vu MV E/A: 1.1 TR max vu : 125.7 cm/sec : 73.0 cm/sec Med Peak E' Vu : 283.4 cm/sec Ao max PG MV A max vu TR max P.1 mmHg : 6.3 mmHg : 68.9 cm/sec E/E' med: 11.2 Ao mean PG Lat Peak E' Vu LVOT Max Vu E/E' lat: 7.8 : 73.9 cm/sec E/e' average: 9.5 LAURO(I,D): 2.0 cm sev ratio MV dec time Ao V2 mean LV V1 max PG LAURO indexed to BSA : 0.13 sec : 89.1 cm/sec (cm^2/m^2): 1.1 Ao V2 VTI LV V1 VTI: 16.5 cm LAURO(V,D): 2.0 cm2 Reading Physician:08:16 PM
[2016-10-19] VITALS (8 sets, daily range): BP systolic 113–129; BP diastolic 66–72; PULSE 70–92; RESP 16–20; O2SAT 94–97
[2016-10-19] MEDS: Heparin 5,000 Unit/mL Inj SUBQ SCH ×3 (00:30→16:30)
[2016-10-19] MEDS: 0.9% Sodium Chloride 1,000 ML IV SCH ×4 (04:16→18:34)
[2016-10-19 06:22] LABS: BASOPHILS % (AUTO) 0 % (0-3); EOSINOPHILS % (AUTO) 1.7 % (0-5); MONOCYTES % (AUTO) 6.3 % (4-12); Mean Corpuscular Hemoglobin 32.8 pg (27.0-35.0); Mean Corpuscular Volume 103.3 fL (81-100); NEUTROPHILS % (AUTO) 77.5 % (40-74); Platelet Count 183 bil/L (150-400)
[2016-10-19 06:50] LABS: Magnesium 1.8 mg/dL (1.6-2.6); Phosphorus 2.8 mg/dL (2.5-4.9)
[2016-10-19] MEDS: ARNUITY ELLIPTA INHALATION SCH (08:11)
[2016-10-19] MEDS: Sodium Chloride LOK Flush 10 mL Syringe IVFLUSH SCH ×3 (08:28→16:54)
[2016-10-19] MEDS: MeTOProlol XL 25 mg ER24 Tablet PO SCH (08:28)
[2016-10-19] MEDS: Pantoprazole 20 mg ER24 Tablet PO SCH ×2 (08:28→18:34)
[2016-10-19] MEDS: Albuterol 2.5 mg/3 mL Inhalation Solution NEB PRN (08:30)
--- NOTE | 2016-10-19 10:47 | PCM.PNMED ---
Subjective Date of Service October 19, [address]/lipase showed acute pancreatitis w/o complications, TTE/stress test unremarkable VS remained stable, afebrile, pt less nauseous has appetite denied abdominal pain Exam Vital Signs Vital Sign - Last Date Time Temp Pulse Resp B/P Pulse Ox O2 Delivery O2 Flow Rate FiO2 10/19/16 10:15 36.8 80 20 128/72 94 Room Air Intake and Output 10/18/16 10/18/16 10/19/16 Cumulative From/Thru 15:00 23:00 07:00 10/17/16 17:30 - 10/19/16 06:38 Intake Total 518 ml 4207 ml 1900 ml 6625 ml Output Total 620 ml 2000 ml 1400 ml 4020 ml Balance -102 ml 2207 ml 500 ml 2605 ml Intake Oral 518 ml 3050 ml 200 ml 3768 ml IV Total 1157 ml 1700 ml 2857 ml Output Urine Total 600 ml 2000 ml 1400 ml 4000 ml Emesis 20 ml 20 ml # Bowel Movements 0 0 0 0 Exam NAD, mildly distressed due to pain no JVD, MMM, no LAD RRR, nl s1, s2 no mrg CTAB, no w,c S,ND,mild epigastric td, hypoactive BS+ warm,trace edema bilaterally, pulses 2/2 IVs and Medications Medications Reviewed: Medications were reviewed in detail Lab and Diagnostics Result Diagram: 10/19/1652910/19/16529 Cardiac Echo Impressions Echocardiogram Report Name: DELFINA ENCINAS Date: 10/18/2016 Height: 59 in Hospital Exam Location: [facility] Weight: 194 lb Gender: Female BSA: 1.8 m2 : 1960 Age: 56 yrs BP: 127/73 mmHg Reason For Study: Chest pain Ordering Physician: HOSPITALIST [facility] Performed By: Aryan Acosta Referring Physician: TAMMY CHRISTOPHER Interpretation Summary 1. Normal left ventricular size, normal wall thickness with an estimated EF of 50-55% 2. Grossly normal right ventricular size and systolic function. 3. Borderline mitral valve prolapse with an eccentric regurgitant jet (at least moderate in severity). 4. Mild to moderate tricuspid regurgitation. The estimated RVSP is 34 mm Hg On the previous study, the mitral regurgitation was graded as mild Assessment & Plan Delfina Encinas is a 56 year old woman with a PMH as listed above, who [facility] with radiation to the left arm and jaw with associated diaphoresis. Serial Trop negative x3 between [facility] and out ED , however, given the concerning nature of her symptoms and her inability to complete her stress test she presented to [facility] for completion of her stress test tomorrow and trending of her cardiac biomarkers to ensure there is no cardiac process underlying her pain. acute, active #nausea, epigastric pain, probable chest pain, POA, due to acute pancreatitis based on CT, lipase. this is 4 or 5thi episode. no ETOH abuse, no CBD dilatation but small GB stones, TG level WNL. no SIRS, renal function WNL, not in criteria of severe pancreatitis. -needs more investigation as to etiology of recurrent idiopathic pancreatitis, send autoimmune panel, -continue IVF 150cc/hr, -control pain with dilaudid prn -pantoprazole 40mg iv bid -slowly adavance diet with clears first -elemetry chronic, stable #hx of breast CA, stageII s/p mastectomy, continue tamoxifen, 2. Hypothyroid, present on admission, Continue home Levothyroxine 50 mcg 3. Frequent PVCs, present on admission, chronic. Continue home Metoprolol XL 25 mg. Repeat TTE/stress test unremarkable for ACS 4. Depression with anxiety, present on admission, chronic. Active -Continue home Citalopram -Continue home Diazepam PRN 5. RLS, present on admission, chronic. Active -Continue home Ropinirole 6. Chronic pain, present on admission.Active -Continue home Tramadol -Continue home Gabapentin 7. HTN, present on admission, active -Continue home Lasix 40mg -Metoprolol as above Code Status: FULL CODE dispo:likely 1-2more days diet:as above dvt ppx:LMWH GI Prophylaxis: Proton Pump Inhibitor VTE Prophylaxis: Sub-Q Heparin (Unfractionated) VTE Mechanical Devices: Intermittant Pneumatic CD Resuscitation Status: CPR: Attempt Resuscitation Time spent 35min Sully Lentz MD October 19, 2016 10:47
[2016-10-20] MEDS: Heparin 5,000 Unit/mL Inj SUBQ SCH ×4 (00:30→16:43)
[2016-10-20 05:53] LABS: BASOPHILS % (AUTO) 0.2 % (0-3); EOSINOPHILS % (AUTO) 3.9 % (0-5); Mean Corpuscular Hemoglobin 32.9 pg (27.0-35.0); Mean Corpuscular Volume 103.3 fL (81-100); NEUTROPHILS % (AUTO) 66.6 % (40-74); Platelet Count 181 bil/L (150-400)
[2016-10-20 06:15] VITALS: BP 110/69; PULSE 71; RESP 18; O2SAT 96
[2016-10-20 06:20] LABS: Magnesium 1.8 mg/dL (1.6-2.6); Phosphorus 2.3 mg/dL (2.5-4.9)
[2016-10-20] MEDS: 0.9% Sodium Chloride 1,000 ML IV SCH ×2 (07:39→14:19)
[2016-10-20] MEDS: MeTOProlol XL 25 mg ER24 Tablet PO SCH (07:51)
[2016-10-20] MEDS: Pantoprazole 20 mg ER24 Tablet PO SCH ×2 (07:51→16:41)
[2016-10-20] MEDS: Sodium Chloride LOK Flush 10 mL Syringe IVFLUSH SCH ×2 (07:52→14:37)
[2016-10-20 08:27] VITALS: PULSE 76; RESP 16; O2SAT 96
[2016-10-20] MEDS: Albuterol 2.5 mg/3 mL Inhalation Solution NEB PRN ×2 (08:27→21:34)
[2016-10-20] MEDS: ARNUITY ELLIPTA INHALATION SCH (08:30)
--- NOTE | 2016-10-20 08:49 | PCM.PNMED ---
Subjective Date of Service October 20, 2016 Subjective pt continued to do well, tolerated liquid yesterday feels hungry, no n/v/abdominal pain Exam Vital Signs Vital Sign - Last Date Time Temp Pulse Resp B/P Pulse Ox O2 Delivery O2 Flow Rate FiO2 10/20/16 08:27 76 16 96 Room Air 10/20/16 06:15 37.1 110/69 Intake and Output 10/19/16 10/19/16 10/20/16 Cumulative From/Thru 15:00 23:00 07:00 10/17/16 17:30 - 10/20/16 06:15 Intake Total 2542 ml 9167 ml Output Total 1500 ml 5520 ml Balance 1042 ml 3647 ml Intake Oral 1200 ml 4968 ml IV Total 1342 ml 4199 ml Output Urine Total 1500 ml 5500 ml Emesis 20 ml # Bowel Movements 0 Exam NAD, mildly distressed due to pain no JVD, MMM, no LAD RRR, nl s1, s2 no mrg CTAB, no w,c S,ND,mild epigastric td, hypoactive BS+ warm,trace edema bilaterally, pulses 2/2 IVs and Medications Medications Reviewed: Medications were reviewed in detail Lab and Diagnostics Result Diagram: 10/20/1651910/20/16 0520 Cardiac Echo Impressions Echocardiogram Report Name: DELFINA ENCINAS Date: 10/18/2016 Height: 59 in Hospital Exam Location: [facility] Weight: 194 lb Gender: Female BSA: 1.8 m2 : 1960 Age: 56 yrs BP: 127/73 mmHg Reason For Study: Chest pain Ordering Physician: HOSPITALIST [facility] Performed By: Aryan Acosta Referring Physician: TAMMY CHRISTOPHER Interpretation Summary 1. Normal left ventricular size, normal wall thickness with an estimated EF of 50-55% 2. Grossly normal right ventricular size and systolic function. 3. Borderline mitral valve prolapse with an eccentric regurgitant jet (at least moderate in severity). 4. Mild to moderate tricuspid regurgitation. The estimated RVSP is 34 mm Hg On the previous study, the mitral regurgitation was graded as mild Assessment & Plan Delfina Encinas is a 56 year old woman with a PMH as listed above, who had to abort a stress test at [facility] for chest pain with radiation to the left arm and jaw with associated diaphoresis. Serial Trop negative x3 between [facility] and out ED , however, given the concerning nature of her symptoms and her inability to complete her stress test she presented to [facility] for completion of her stress test tomorrow and trending of her cardiac biomarkers to ensure there is no cardiac process underlying her pain. acute, active #nausea, epigastric pain, probable chest pain, POA, due to acute pancreatitis based on CT, lipase. this is 4 or 5thi episode. no ETOH abuse, no CBD dilatation but small GB stones, TG level WNL. no SIRS, renal function WNL, not in criteria of severe pancreatitis. -needs more investigation as to etiology of recurrent idiopathic pancreatitis, send autoimmune panel, -continue IVF 150cc/hr, -control pain with dilaudid prn -pantoprazole 40mg iv bid -slowly adavance diet with soft to general today -telemetry chronic, stable #hx of breast CA, stageII s/p mastectomy, continue tamoxifen, 2. Hypothyroid, present on admission, Continue home Levothyroxine 50 mcg 3. Frequent PVCs, present on admission, chronic. Continue home Metoprolol XL 25 mg. Repeat TTE/stress test unremarkable for ACS 4. Depression with anxiety, present on admission, chronic. Active -Continue home Citalopram -Continue home Diazepam PRN 5. RLS, present on admission, chronic. Active -Continue home Ropinirole 6. Chronic pain, present on admission.Active -Continue home Tramadol -Continue home Gabapentin 7. HTN, present on admission, active -Continue home Lasix 40mg -Metoprolol as above Code Status: FULL CODE dispo:likely 1-2more days diet:as above dvt ppx:LMWH GI Prophylaxis: Proton Pump Inhibitor VTE Prophylaxis: Sub-Q Heparin (Unfractionated) VTE Mechanical Devices: Intermittant Pneumatic CD Resuscitation Status: CPR: Attempt Resuscitation Time spent 35min Sully Lentz MD October 20, 2016 08:49
[2016-10-20 13:07] VITALS: BP 118/60; PULSE 86; RESP 18; O2SAT 95
[2016-10-20 20:13] VITALS: PULSE 82; RESP 16; O2SAT 98
[2016-10-20 20:48] VITALS: BP 110/68; PULSE 82; RESP 18; O2SAT 97
[2016-10-20] MEDS: Polyethylene Glycol (PEG) 17 Gm Powder PO PRN (21:23)
[2016-10-20 21:34] VITALS: PULSE 72; RESP 16; O2SAT 96
[2016-10-21] MEDS: Sodium Chloride LOK Flush 10 mL Syringe IVFLUSH SCH ×3 (00:30→15:13)
[2016-10-21] MEDS: Heparin 5,000 Unit/mL Inj SUBQ SCH ×3 (00:30→15:58)
[2016-10-21 04:50] VITALS: BP 115/63; PULSE 80; RESP 18; O2SAT 96
[2016-10-21 06:29] LABS: BASOPHILS % (AUTO) 0.2 % (0-3); EOSINOPHILS % (AUTO) 5.2 % (0-5); MONOCYTES % (AUTO) 12.1 % (4-12); Mean Corpuscular Hemoglobin 32.6 pg (27.0-35.0); Mean Corpuscular Volume 103.3 fL (81-100); NEUTROPHILS % (AUTO) 56.8 % (40-74); Platelet Count 190 bil/L (150-400)
[2016-10-21 06:56] LABS: Magnesium 1.9 mg/dL (1.6-2.6); Phosphorus 2.5 mg/dL (2.5-4.9)
[2016-10-21] MEDS: MeTOProlol XL 25 mg ER24 Tablet PO SCH (07:55)
[2016-10-21] MEDS: Pantoprazole 20 mg ER24 Tablet PO SCH ×2 (07:55→15:57)
[2016-10-21 08:00] VITALS: PULSE 88; RESP 16; O2SAT 97
[2016-10-21] MEDS: ARNUITY ELLIPTA INHALATION SCH (08:00)
--- NOTE | 2016-10-21 11:30 | PCM.PNMED ---
Subjective Date of Service October 21, 2016 Subjective pt still in pain after eating, tolerated soft diet well. no fever, chills, vomiting Exam Vital Signs Vital Sign - Last Date Time Temp Pulse Resp B/P Pulse Ox O2 Delivery O2 Flow Rate FiO2 10/21/16 04:50 37.3 80 18 115/63 96 Room Air Intake and Output 10/20/16 10/20/16 10/21/16 Cumulative From/Thru 15:00 23:00 07:00 10/17/16 17:30 - 10/21/16 06:30 Intake Total 550 ml 1218 ml 500 ml 88222 ml Output Total 1000 ml 1600 ml 650 ml 8770 ml Balance -450 ml -382 ml -150 ml 2665 ml Intake Oral 550 ml 1218 ml 500 ml 7236 ml IV Total 4199 ml Output Urine Total 1000 ml 1600 ml 650 ml 8750 ml Emesis 20 ml # Bowel Movements 0 0 Exam NAD, mildly distressed due to pain no JVD, MMM, no LAD RRR, nl s1, s2 no mrg CTAB, no w,c S,ND,mild epigastric td, hypoactive BS+ warm,trace edema bilaterally, pulses 2/2 IVs and Medications Medications Reviewed: Medications were reviewed in detail Lab and Diagnostics Result Diagram: 10/21/1660910/21/16609 Cardiac Echo Impressions Echocardiogram Report Name: DELFINA ENCINAS AStudcain Date: 10/18/2016 Height: 59 in Hospital Exam Location: [facility] Weight: 194 lb Gender: Female BSA: 1.8 m2 : 1960 Age: 56 yrs BP: 127/73 mmHg Reason For Study: Chest pain Ordering Physician: HOSPITALIST [facility] Performed By: Aryan Acosta Referring Physician: TAMMY CHRISTOPHER Interpretation Summary 1. Normal left ventricular size, normal wall thickness with an estimated EF of 50-55% 2. Grossly normal right ventricular size and systolic function. 3. Borderline mitral valve prolapse with an eccentric regurgitant jet (at least moderate in severity). 4. Mild to moderate tricuspid regurgitation. The estimated RVSP is 34 mm Hg On the previous study, the mitral regurgitation was graded as mild Assessment & Plan Delfina Encinas is a 56 year old woman with a PMH as listed above, who had to abort a stress test at [facility] for chest pain with radiation to the left arm and jaw with associated diaphoresis. Serial Trop negative x3 between [facility] and out ED , however, given the concerning nature of her symptoms and her inability to complete her stress test she presented to [facility] for completion of her stress test tomorrow and trending of her cardiac biomarkers to ensure there is no cardiac process underlying her pain. acute, active #nausea, epigastric pain, probable chest pain, POA, due to acute pancreatitis based on CT, lipase. this is 4 or 5thi episode. no ETOH abuse, no CBD dilatation but small GB stones, TG level WNL. no SIRS, renal function WNL, not in criteria of severe pancreatitis. -pt is clinically stable, but still symptomatic -needs more investigation as to etiology of recurrent idiopathic pancreatitis, autoimmune IgG4, unavailable in house. need GI follow up -will consider repeat images if pain gets worse, abd US to see CBD stones, complications -s/p IVF, stopped 5/6 -control pain with dilaudid prn -pantoprazole 40mg po bid -slowly adavance diet with soft, possibly general tomorrow -telemetry chronic, stable #hx of breast CA, stageII s/p mastectomy, continue tamoxifen, 2. Hypothyroid, present on admission, Continue home Levothyroxine 50 mcg 3. Frequent PVCs, present on admission, chronic. Continue home Metoprolol XL 25 mg. Repeat TTE/stress test unremarkable for ACS 4. Depression with anxiety, present on admission, chronic. Active -Continue home Citalopram -Continue home Diazepam PRN 5. RLS, present on admission, chronic. Active -Continue home Ropinirole 6. Chronic pain, present on admission.Active -Continue home Tramadol -Continue home Gabapentin 7. HTN, present on admission, active -Continue home Lasix 40mg -Metoprolol as above Code Status: FULL CODE dispo:likely tomorrow, pt is homeless couch surfing. no high needs for SNF. diet:as above dvt ppx:LMWH GI Prophylaxis: Proton Pump Inhibitor VTE Prophylaxis: Sub-Q Heparin (Unfractionated) VTE Mechanical Devices: Venous Foot Pump Resuscitation Status: CPR: Attempt Resuscitation Time spent 35min Sully Lentz MD October 21, 2016 11:30
[2016-10-21 12:59] VITALS: BP 123/78; PULSE 91; RESP 18; O2SAT 96
[2016-10-21 19:36] VITALS: BP 124/72; PULSE 81; RESP 18; O2SAT 97
[2016-10-21 20:24] VITALS: PULSE 87; RESP 16; O2SAT 97
[2016-10-21] MEDS: Polyethylene Glycol (PEG) 17 Gm Powder PO PRN (21:06)
[2016-10-21] MEDS: Senna-Docusate 8.6-50 mg Tablet PO PRN (21:06)
[2016-10-22] VITALS (7 sets, daily range): BP systolic 116–144; BP diastolic 70–75; PULSE 77–133; RESP 16–22; O2SAT 95–98
[2016-10-22] MEDS: Sodium Chloride LOK Flush 10 mL Syringe IVFLUSH SCH ×3 (00:45→13:38)
[2016-10-22] MEDS: Heparin 5,000 Unit/mL Inj SUBQ SCH ×3 (00:45→16:04)
[2016-10-22 05:32] LABS: BASOPHILS % (AUTO) 0.2 % (0-3); EOSINOPHILS % (AUTO) 5.5 % (0-5); MONOCYTES % (AUTO) 11.4 % (4-12); Mean Corpuscular Volume 102.3 fL (81-100); NEUTROPHILS % (AUTO) 59.2 % (40-74); Platelet Count 202 bil/L (150-400)
[2016-10-22 06:28] LABS: Magnesium 1.8 mg/dL (1.6-2.6)
[2016-10-22] MEDS: MeTOProlol XL 25 mg ER24 Tablet PO SCH (07:29)
[2016-10-22] MEDS: Pantoprazole 20 mg ER24 Tablet PO SCH ×2 (07:29→16:03)
[2016-10-22] MEDS: ARNUITY ELLIPTA INHALATION SCH (07:34)
--- NOTE | 2016-10-22 09:14 | PCM.PNMED ---
Subjective Date of Service October 22, 2016 Subjective Improving, ate breakfast this AM but had to stop due to some epigastric discomfort. No other complaints. Exam Vital Signs Vital Sign - Last Date Time Temp Pulse Resp B/P Pulse Ox O2 Delivery O2 Flow Rate FiO2 10/22/16 08:53 133 22 98 Room Air 10/22/16 04:58 37.1 117/71 Intake and Output 10/21/16 10/21/16 10/22/16 Cumulative From/Thru 15:00 23:00 07:00 10/17/16 17:30 - 10/22/16 05:07 Intake Total 692 ml 500 ml 73554 ml Output Total 1750 ml 800 ml 81405 ml Balance -1058 ml -300 ml 1307 ml Intake Oral 692 ml 500 ml 8428 ml IV Total 4199 ml Output Urine Total 1750 ml 800 ml 20598 ml Emesis 20 ml # Bowel Movements 0 Exam Eyes; macrina eom intact HENT; adequate hydration CV; no murmur Resp; Clear GI; mild epigastric discomfort to palpation Lab and Diagnostics Result Diagram: 10/22/16 0505 10/22/16 0505 Cardiac Echo Impressions Echocardiogram Report Name: DELFINA ENCINASudcain Date: 10/18/2016 Height: 59 in Hospital Exam Location: [facility] Weight: 194 lb Gender: Female BSA: 1.8 m2 : 1960 Age: 56 yrs BP: 127/73 mmHg Reason For Study: Chest pain Ordering Physician: HOSPITALIST [facility] Performed By: Aryan Acosta Referring Physician: TAMMY CHRISTOPHER Interpretation Summary 1. Normal left ventricular size, normal wall thickness with an estimated EF of 50-55% 2. Grossly normal right ventricular size and systolic function. 3. Borderline mitral valve prolapse with an eccentric regurgitant jet (at least moderate in severity). 4. Mild to moderate tricuspid regurgitation. The estimated RVSP is 34 mm Hg On the previous study, the mitral regurgitation was graded as mild Assessment & Plan Delfina Encinas is a 56 year old woman with a PMH as listed above, who had to abort a stress test at [facility] for chest pain with radiation to the left arm and jaw with associated diaphoresis. Serial Trop negative x3 between [facility] and out ED , however, given the concerning nature of her symptoms and her inability to complete her stress test she presented to [facility] for completion of her stress test tomorrow and trending of her cardiac biomarkers to ensure there is no cardiac process underlying her pain. 1. Pancreatitis, poa, active -this is 4 or 5thi episode. no ETOH abuse, no CBD dilatation but small GB stones , TG level WNL. no SIRS, renal function WNL, not inis. -still mildley symptomatic, patient will be watched today and repeat lipase in AM -Gall stones noted, recommend further evaluation after discharge about possibility of cholecystectomy 2. Hypothyroid, present on admission, Continue home Levothyroxine 50 mcg 3. Frequent PVCs, present on admission, chronic. Continue home Metoprolol XL 25 mg. Repeat TTE/stress test unremarkable for ACS 4. Depression with anxiety, present on admission, chronic. Active -Continue home Citalopram -Continue home Diazepam PRN 5. RLS, present on admission, chronic. Active -Continue home Ropinirole 6. Chronic pain, present on admission.Active -Continue home Tramadol -Continue home Gabapentin 7. HTN, present on admission, active -Continue home Lasix 40mg -Metoprolol as above 8.hx of breast CA, stageII s/p mastectomy, continue tamoxifen, Code Status: FULL CODE dispo:pcp is Xavi Argueta diet:as above dvt ppx:LMWH GI Prophylaxis: Proton Pump Inhibitor VTE Prophylaxis: Sub-Q Heparin (Unfractionated) VTE Mechanical Devices: Venous Foot Pump Resuscitation Status: CPR: Attempt Resuscitation Winsome Barraza MD October 22, 2016 09:14 Winsome Barraza MD October 22, 2016 09:14
[2016-10-22] MEDS: Senna-Docusate 8.6-50 mg Tablet PO PRN (10:44)
[2016-10-22] MEDS: Polyethylene Glycol (PEG) 17 Gm Powder PO PRN (10:44)
[2016-10-22] MEDS: Alum-Mag Hydrox-Simeth 30 mL Suspension PO PRN (13:37)
[2016-10-23] MEDS: Heparin 5,000 Unit/mL Inj SUBQ SCH ×3 (00:26→17:20)
[2016-10-23] MEDS: Sodium Chloride LOK Flush 10 mL Syringe IVFLUSH SCH ×3 (00:26→16:30)
[2016-10-23 04:02] VITALS: BP 124/73; PULSE 76; RESP 18; O2SAT 95
--- NOTE | 2016-10-23 07:41 | PCM.PNMED ---
Subjective Date of Service October 23, 2016 Subjective Still having pain after eating a bit, so stops. Otherwise doing OK, lipase near normal. Exam Vital Signs Vital Sign - Last Date Time Temp Pulse Resp B/P Pulse Ox O2 Delivery O2 Flow Rate FiO2 10/23/16 04:02 36.6 76 18 124/73 95 Room Air Intake and Output 10/22/16 10/22/16 10/23/16 Cumulative From/Thru 15:00 23:00 07:00 10/17/16 17:30 - 10/23/16 05:51 Intake Total 820 ml 400 ml 04187 ml Output Total 1300 ml 1025 ml 99269 ml Balance -480 ml -625 ml 202 ml Intake Oral 820 ml 400 ml 9648 ml IV Total 4199 ml Output Urine Total 1300 ml 1025 ml 05941 ml Emesis 20 ml # Bowel Movements 1 0 1 Exam Eyes; macrina, eom intact HENT; membranes hydrated, no lesions CV; regular, no murmur Lungs; clear GI; Mild epigastric discomfort to palp, soft otherwise and non acute Skin; no active rashes Lab and Diagnostics Result Diagram: 10/22/16 0505 10/22/16 0505 Cardiac Echo Impressions Echocardiogram Report Name: DELFINA ENCINAS AStudcain Date: 10/18/2016 Height: 59 in Hospital Exam Location: [facility] Weight: 194 lb Gender: Female BSA: 1.8 m2 : 1960 Age: 56 yrs BP: 127/73 mmHg Reason For Study: Chest pain Ordering Physician: HOSPITALIST [facility] Performed By: Aryan Acosta Referring Physician: TAMMY CHRISTOPHER Interpretation Summary 1. Normal left ventricular size, normal wall thickness with an estimated EF of 50-55% 2. Grossly normal right ventricular size and systolic function. 3. Borderline mitral valve prolapse with an eccentric regurgitant jet (at least moderate in severity). 4. Mild to moderate tricuspid regurgitation. The estimated RVSP is 34 mm Hg On the previous study, the mitral regurgitation was graded as mild Assessment & Plan Delfina Encinas is a 56 year old woman with a PMH as listed above, who had to abort a stress test at [facility] for chest pain with radiation to the left arm and jaw with associated diaphoresis. Serial Trop negative x3 between [facility] and out ED , however, given the concerning nature of her symptoms and her inability to complete her stress test she presented to [facility] for completion of her stress test tomorrow and trending of her cardiac biomarkers to ensure there is no cardiac process underlying her pain. Now diagnosed with pancreatitis. 1. Pancreatitis, poa, active -this is 4 or 5thi episode. no ETOH abuse, no CBD dilatation but small GB stones , TG level WNL. no SIRS -still mildly symptomatic with pain after eating, patient will be watched today and repeat lipase, CMP, CRP, procal. -will talk with dietary for a more bland diet today, and hydrate at 80cc/hour -Gall stones noted, recommend further evaluation after discharge about possibility of cholecystectomy 2. Hypothyroid, present on admission, -Continue home Levothyroxine 50 mcg 3. Frequent PVCs, present on admission, chronic. -Continue home Metoprolol XL 25 mg. Repeat TTE/stress test unremarkable for ACS 4. Depression with anxiety, present on admission, chronic. -Continue home Citalopram -Continue home Diazepam PRN 5. RLS, present on admission, chronic -Continue home Ropinirole 6. Chronic pain, present on admission, stable -Continue home Tramadol -Continue home Gabapentin 7. HTN, present on admission, stable -Continue home Lasix 40mg -Metoprolol as above 8.hx of breast CA, stageII s/p mastectomy, -continue tamoxifen, Code Status: FULL CODE dispo:pcp is Xavi Argueta diet:as above dvt ppx:LMWH GI Prophylaxis: Proton Pump Inhibitor VTE Prophylaxis: Sub-Q Heparin (Unfractionated) VTE Mechanical Devices: Venous Foot Pump Resuscitation Status: CPR: Attempt Resuscitation Winsome Barraza MD October 23, 2016 07:41
[2016-10-23] MEDS: ARNUITY ELLIPTA INHALATION SCH (08:30)
[2016-10-23] MEDS: MeTOProlol XL 25 mg ER24 Tablet PO SCH (09:11)
[2016-10-23] MEDS: Pantoprazole 20 mg ER24 Tablet PO SCH ×2 (09:11→17:20)
[2016-10-23 10:19] VITALS: PULSE 81; RESP 16; O2SAT 97
[2016-10-23] MEDS: Albuterol 2.5 mg/3 mL Inhalation Solution NEB PRN (10:19)
[2016-10-23 13:01] VITALS: BP 146/83; PULSE 85; RESP 18; O2SAT 95
[2016-10-23] MEDS: 0.9% Sodium Chloride 1,000 ML IV SCH (13:16)
[2016-10-23 20:15] VITALS: PULSE 82; RESP 20; O2SAT 97
[2016-10-23 21:11] VITALS: BP 120/71; PULSE 78; RESP 18; O2SAT 97
[2016-10-23] MEDS: Ondansetron 2 mg/mL 2 mL Inj IVPUSH PRN (21:35)
[2016-10-23] MEDS: Alum-Mag Hydrox-Simeth 30 mL Suspension PO PRN (23:13)
[2016-10-24] MEDS: Sodium Chloride LOK Flush 10 mL Syringe IVFLUSH SCH ×3 (00:24→16:02)
[2016-10-24] MEDS: Heparin 5,000 Unit/mL Inj SUBQ SCH ×3 (00:24→16:07)
[2016-10-24] MEDS: 0.9% Sodium Chloride 1,000 ML IV SCH ×2 (00:24→16:02)
[2016-10-24] MEDS: Ondansetron 2 mg/mL 2 mL Inj IVPUSH PRN ×3 (02:08→17:07)
[2016-10-24 04:14] VITALS: BP 124/76; PULSE 85; RESP 18; O2SAT 96
[2016-10-24 06:24] LABS: BASOPHILS % (AUTO) 0.2 % (0-3); EOSINOPHILS % (AUTO) 6.3 % (0-5); MONOCYTES % (AUTO) 10.9 % (4-12); Mean Corpuscular Hemoglobin 32.8 pg (27.0-35.0); Mean Corpuscular Volume 102.8 fL (81-100); NEUTROPHILS % (AUTO) 55.3 % (40-74); Platelet Count 232 bil/L (150-400)
[2016-10-24 07:37] VITALS: BP 113/68; PULSE 78; RESP 16; O2SAT 96
[2016-10-24] MEDS: MeTOProlol XL 25 mg ER24 Tablet PO SCH (07:55)
[2016-10-24] MEDS: Pantoprazole 20 mg ER24 Tablet PO SCH ×2 (07:56→16:03)
[2016-10-24] MEDS: ARNUITY ELLIPTA INHALATION SCH (08:34)
--- NOTE | 2016-10-24 12:35 | DRSVH ---
PROCEDURE: MR ABDOMEN MRCP INDICATIONS: Nausea, pancreatitis, and gallstones. TECHNIQUE: Coronal HASTE through the abdomen, axial 2-D FLASH in- and [id number], and breath-hold T2 FSE with fat saturation through the biliary system and pancreas. Oblique coronal and axial thin-slice HASTE, radial thick-slab HASTE centered on the extrahepatic bile ducts. Intravenous secretin: Not requested. COMPARISON: [facility], CT, CT ABD PELVIS W CON, 10/18/2016, 14:45. FINDINGS: Image quality: Is mild motion artifact. Pancreas and biliary system: There are a few small gallstones redemonstrated in the region of the ga llbladder neck. No gallbladder wall thickening or pericholecystic fluid. No intra-or extrahepatic b iliary duct dilatation. No filling defects within the common bile duct to suggest choledocholithiasi s. No abnormal pancreatic duct dilatation. No peripancreatic edema or fluid collections. Other solid organs: Liver and spleen are normal in size. No adrenal nodules. The kidneys demonstra te no hydronephrosis. Nodes and vessels: No retroperitoneal or mesenteric adenopathy by size criteria. Aorta and inferior vena cava are normal in size. Bowel and peritoneum: Visualized bowel loops are normal in caliber. No free fluid. Lung bases: A minimal left pleural effusion is present. There is a moderate-sized hiatal hernia. Hea rt size is normal. Bones and soft tissues: No ventral hernias. Bone marrow is of normal overall signal. IMPRESSION: 1. Cholelithiasis without evidence of cholecystitis or choledocholithiasis. 2. No pseudocysts or peripancreatic edema. 3. Moderate sized hiatal hernia. Dictated by: Srikanth Green M.D. on 10/24/2016 at 12:20 Approved by: Srikanth Green M.D. on 10/24/2016 at 12:33
[2016-10-24] MEDS: Albuterol 2.5 mg/3 mL Inhalation Solution NEB PRN (12:38)
[2016-10-24 12:39] VITALS: PULSE 73; RESP 18; O2SAT 96
[2016-10-24 12:43] VITALS: BP 113/59; PULSE 77; RESP 18; O2SAT 98
--- NOTE | 2016-10-24 14:49 | PCM.PNMED ---
Subjective Date of Service October 24, 2016 Subjective Patient eating pretty well but continues to complain of nausea. No fever. MRCP without ductal stones, lipase coming down. Exam Vital Signs Vital Sign - Last Date Time Temp Pulse Resp B/P Pulse Ox O2 Delivery O2 Flow Rate FiO2 10/24/16 12:43 37.1 77 18 113/59 98 Room Air Intake and Output 10/23/16 10/23/16 10/24/16 Cumulative From/Thru 15:00 23:00 07:00 10/17/16 17:30 - 10/24/16 06:02 Intake Total 1340 ml 300 ml 05563 ml Output Total 1775 ml 975 ml 19163 ml Balance -435 ml -675 ml -908 ml Intake Oral 908 ml 300 ml 24377 ml IV Total 432 ml 4631 ml Output Urine Total 1775 ml 975 ml 26020 ml Emesis 20 ml # Bowel Movements 1 Exam Eyes; macrina, eom intact HENT; membranes hydrated, no lesions CV; regular, no murmur Lungs; clear to auscultation GI; Mild epigastric discomfort to palp, soft otherwise and non acute Skin; no active rashes Lab and Diagnostics Result Diagram: 10/24/1651410/24/16514 Cardiac Echo Impressions Echocardiogram Report Name: DELFINA ENCINAS Date: 10/18/2016 Height: 59 in Hospital Exam Location: [facility] Weight: 194 lb Gender: Female BSA: 1.8 m2 : 1960 Age: 56 yrs BP: 127/73 mmHg Reason For Study: Chest pain Ordering Physician: HOSPITALIST [facility] Performed By: Aryan Acosta Referring Physician: TAMMY CHRISTOPHER Interpretation Summary 1. Normal left ventricular size, normal wall thickness with an estimated EF of 50-55% 2. Grossly normal right ventricular size and systolic function. 3. Borderline mitral valve prolapse with an eccentric regurgitant jet (at least moderate in severity). 4. Mild to moderate tricuspid regurgitation. The estimated RVSP is 34 mm Hg On the previous study, the mitral regurgitation was graded as mild Assessment & Plan Delfina Encinas is a 56 year old woman with a PMH as listed above, who had to abort a stress test at [facility] for chest pain with radiation to the left arm and jaw with associated diaphoresis. Serial Trop negative x3 between [facility] and out ED , however, given the concerning nature of her symptoms and her inability to complete her stress test she presented to [facility] for completion of her stress test tomorrow and trending of her cardiac biomarkers to ensure there is no cardiac process underlying her pain. Now diagnosed with pancreatitis. 1. Pancreatitis, poa, active -this is 4 or 5thi episode. no ETOH abuse, no CBD dilatation but small GB stones , TG level WNL. no SIRS -still mildly symptomatic with pain after eating, patient will be watched today and repeat lipase, CMP, CRP, procal. -will talk with dietary for a more bland diet today, and hydrate at 80cc/hour -Gall stones noted, recommend further evaluation after discharge about possibility of cholecystectomy -CRP, lipase, bmp in am 2. Gallstones, poa, active -patient would like to see surgeon, I discussed with Dr. Reyes who will see patient about her gall stones, consider cholecystectomy -continue fluid hydration, 2. Hypothyroid, present on admission, -Continue home Levothyroxine 50 mcg 3. Frequent PVCs, present on admission, chronic. -Continue home Metoprolol XL 25 mg. Repeat TTE/stress test unremarkable for ACS 4. Depression with anxiety, present on admission, chronic. -Continue home Citalopram -Continue home Diazepam PRN 5. RLS, present on admission, chronic -Continue home Ropinirole 6. Chronic pain, present on admission, stable -Continue home Tramadol -Continue home Gabapentin 7. HTN, present on admission, stable -Continue home Lasix 40mg -Metoprolol as above 8.hx of breast CA, stageII s/p mastectomy, -continue tamoxifen, Code Status: FULL CODE dispo:pcp is Xavi Argueta diet:as above dvt ppx:LMWH GI Prophylaxis: Proton Pump Inhibitor VTE Prophylaxis: Sub-Q Heparin (Unfractionated) VTE Mechanical Devices: Venous Foot Pump Resuscitation Status: CPR: Attempt Resuscitation Winsome Barraza MD October 24, 2016 14:49
[2016-10-24 20:51] VITALS: BP 110/69; PULSE 82; RESP 18; O2SAT 96
--- NOTE | 2016-10-24 21:34 | CONS ---
[address] [address] CONSULTATION REPORT PATIENT: VLAD ENCINAS : 1960 MR#: [id number] ADMIT: 10/17/2016 JOB ID: [id number] DATE OF SERVICE: 10/24/2016 CHIEF COMPLAINT: Gallstone pancreatitis. HISTORY OF PRESENT ILLNESS: This is a 56-year-old woman who was admitted to the hospital several days ago with an episode of what she describes as chest pain with radiation to the jaw and associated diaphoresis. She was concerned about her heart and therefore presented to the emergency department. She underwent assessment of her overall clinical status and was found to have pancreatitis with a lipase on admission of 3750. With conservative management, her symptoms have improved and her current lipase is now 95. Her white blood cell count has been normal throughout her admission. A CT scan was also performed on October 18 which showed acute pancreatitis without abscess, necrosis or pseudocyst. Cholelithiasis was also noted on the CT scan. According to her hospital notes, she has had four or five episodes of pancreatitis in the past with no history of alcohol abuse, and no common bile duct dilation seen on CT or MRCP. She also has a normal triglyceride level. PAST MEDICAL HISTORY: 1. Stage II, T2 N1, left-sided invasive ductal carcinoma in remission status post mastectomy. 2. Hypothyroidism on Synthroid. 3. Anemia. 4. Pancreatitis. 5. PVCs. 6. Restless legs and peripheral edema. 7. Cholelithiasis. 8. GERD. 9. Depression. SURGICAL HISTORY: 1. Left mastectomy with tissue reconstruction. 2. Laparoscopic hiatal hernia repair with Sung fundoplication. She reports that this was at [facility] in [place] in approximately 1995. 3. Jaw reconstruction. 4. Surgery on the 5th digits of bilateral toes. MEDICATIONS: 1. Synthroid. 2. Pantoprazole. 3. Furosemide. 4. Metoprolol. 5. Claritin. 6. Tamoxifen. 7. Gabapentin. 8. Ropinirole. 9. Citalopram. 10. Atorvastatin. 11. Heparin. ALLERGIES: 1. PENICILLIN. 2. TAPE. 3. ASPIRIN. 4. DILTIAZEM. 5. HYDROCODONE. 6. IBUPROFEN. 7. LATEX. 8. OXYCODONE. 9. PROCHLORPERAZINE. FAMILY HISTORY: Her father has ulcerative colitis. Her grandfather had diabetes and of a heart attack in his 80s. SOCIAL HISTORY: She denies alcohol, tobacco and drug use. She has never been a smoker. REVIEW OF SYSTEMS: Eleven point review of systems is performed and is positive for abdominal pain and nausea and is otherwise negative. PHYSICAL EXAMINATION: Temperature 37.1, heart rate 77, blood pressure 113/59, respiratory rate of 18, saturation 98% on room air. General: Awake, alert, no acute distress. Head: Normocephalic. Neck: Supple. Cardiac: Regular rate and rhythm, no murmurs, rubs, or gallops. Respiratory: Lungs clear to auscultation bilaterally. Abdomen: Soft, no tenderness on examination this afternoon in four quadrants. Extremities: No edema. Psychiatric: Normal cognition and judgment. Neurologic: No gross deficits. LABS: Current lipase is 95, and, as noted above, on admission it was 3750. Comprehensive metabolic panel is within normal limits with exception of creatinine of 1.31 and albumin of 3.1. CBC is within normal limits. IMAGING: Images from abdominal CT scan are personally reviewed and reveal cholelithiasis and acute pancreatitis on October 18, 2016. She also has a hiatal hernia and appears to have her previous fundoplication herniating into the chest. Probable hepatic steatosis, mild enlargement of the heart, and postoperative changes of the left breast were also noted by the radiologist. MRCP dated today shows cholelithiasis without evidence of cholecystitis or choledocholithiasis. No pseudocyst or pancreatic edema. Moderate hiatal hernia. In 2006 she has a report (but no images in PACS) stating she has pancreas divisum. ASSESSMENT: A 56-year-old woman with cholelithiasis in the setting of pancreatitis without definitive source. RECOMMENDATION: I recommend laparoscopic cholecystectomy on this admission given the possibility that her cholelithiasis could be contributory as the etiology of her pancreatitis. This has been discussed with her by other providers previously and she agrees. We discussed potential risks including infection, bleeding, and injury to surrounding structures. She understands and elects to proceed. This will be added to the operative schedule for tomorrow, and to be performed by my partner, Dr. Hill, who will be on-call at that time. The patient understands and agrees. She has pancreas divisum based on ERCP in 2006, and it is possible that the etiology of her pancreatitis is related to this. Therefore we discussed the possibility of recurrent pancreatitis; if this were to occur down the road in the absence of a gallbladder/ cholelithiasis/ choledocholithiasis, I would investigate this as a potential etiology in the absence of other explanation. The patient also asked if her recurrent hiatal hernia could be repaired at the same time. The answer to this question is no, as this is a longstanding issue and a redo fundoplication is a large, extensive operation, which requires a thorough assessment and workup. I have therefore recommended to her that she follow up in my clinic on an outpatient basis 2-4 weeks after this hospitalization if she would like to discuss this further. One hour was spent on this patient visit, >50% in counseling and/or coordination of care. ALIZE
[2016-10-25] VITALS (15 sets, daily range): BP systolic 114–163; BP diastolic 61–83; PULSE 74–98; RESP 10–25; O2SAT 89–97
[2016-10-25] MEDS: Sodium Chloride LOK Flush 10 mL Syringe IVFLUSH SCH ×4 (00:16→23:34)
[2016-10-25] MEDS: Heparin 5,000 Unit/mL Inj SUBQ SCH ×3 (00:16→19:57)
[2016-10-25] MEDS: 0.9% Sodium Chloride 1,000 ML IV SCH ×3 (03:55→19:57)
[2016-10-25] MEDS: Ondansetron 2 mg/mL 2 mL Inj IVPUSH PRN ×2 (03:56→14:31)
--- NOTE | 2016-10-25 06:48 | PCM.PNMED ---
Subjective Date of Service October 25, [address] Reyes, NPO now for cholycystectomy today. No problems otherwise overnight and patient has no complaints today. Exam Vital Signs Vital Sign - Last Date Time Temp Pulse Resp B/P Pulse Ox O2 Delivery O2 Flow Rate FiO2 10/25/16 04:11 36.7 74 18 114/76 96 Room Air Intake and Output 10/24/16 10/24/16 10/25/16 Cumulative From/Thru 15:00 23:00 07:00 10/17/16 17:30 - 10/25/16 06:24 Intake Total 1890 ml 918 ml 57789 ml Output Total 1500 ml 875 ml 18664 ml Balance 390 ml 43 ml -475 ml Intake Oral 1150 ml 100 ml 27542 ml IV Total 740 ml 818 ml 6189 ml Output Urine Total 1500 ml 875 ml 39436 ml Emesis 20 ml # Bowel Movements 0 1 Exam Eyes; macrina, eom intact HENT; membranes hydrated, no lesions CV; regular, no murmur Lungs; clear anterioraly GI; Mild epigastric discomfort to palpation , soft otherwise and non acute Skin; no active rashes Lab and Diagnostics Result Diagram: 10/24/1615 10/25/16 0527 Cardiac Echo Impressions Echocardiogram Report Name: DELFINA ENCINAS AStudcain Date: 10/18/2016 Height: 59 in Hospital Exam Location: [facility] Weight: 194 lb Gender: Female BSA: 1.8 m2 : 1960 Age: 56 yrs BP: 127/73 mmHg Reason For Study: Chest pain Ordering Physician: HOSPITALIST [facility] Performed By: Aryan Acosta Referring Physician: TAMMY CHRISTOPHER Interpretation Summary 1. Normal left ventricular size, normal wall thickness with an estimated EF of 50-55% 2. Grossly normal right ventricular size and systolic function. 3. Borderline mitral valve prolapse with an eccentric regurgitant jet (at least moderate in severity). 4. Mild to moderate tricuspid regurgitation. The estimated RVSP is 34 mm Hg On the previous study, the mitral regurgitation was graded as mild Assessment & Plan Delfina Encinas is a 56 year old woman with a PMH as listed above, who had to abort a stress test at [facility] for chest pain with radiation to the left arm and jaw with associated diaphoresis. Serial Trop negative x3 between [facility] and out ED , however, given the concerning nature of her symptoms and her inability to complete her stress test she presented to [facility] for completion of her stress test tomorrow and trending of her cardiac biomarkers to ensure there is no cardiac process underlying her pain. Now diagnosed with pancreatitis. 1. Pancreatitis, poa, active -this is 4 or 5thi episode. no ETOH abuse, no CBD dilatation but small GB stones , TG level WNL. no SIRS -still mildly symptomatic with pain after eating, patient will be watched today and repeat lipase, CMP, CRP, procal. -will talk with dietary for a more bland diet today, and hydrate at 80cc/hour -lap ana rosa today. 2. Gallstones, poa, active -patient would like to see surgeon, I discussed with Dr. Reyes who will see patient about her gall stones, consider cholecystectomy -continue fluid hydration, -lap ana rosa today 2. Hypothyroid, present on admission, -Continue home Levothyroxine 50 mcg 3. Frequent PVCs, present on admission, chronic. -Continue home Metoprolol XL 25 mg. Repeat TTE/stress test unremarkable for ACS 4. Depression with anxiety, present on admission, chronic. -Continue home Citalopram -Continue home Diazepam PRN 5. RLS, present on admission, chronic -Continue home Ropinirole 6. Chronic pain, present on admission, stable -Continue home Tramadol -Continue home Gabapentin 7. HTN, present on admission, stable -Continue home Lasix 40mg -Metoprolol as above 8.hx of breast CA, stageII s/p mastectomy, -continue tamoxifen, Code Status: FULL CODE dispo:pcp is Dr. Begum [place] diet:as above dvt ppx:LMWH GI Prophylaxis: Proton Pump Inhibitor VTE Prophylaxis: Sub-Q Heparin (Unfractionated) VTE Mechanical Devices: Venous Foot Pump Resuscitation Status: CPR: Attempt Resuscitation Winsome Barraza MD October 25, 2016 06:48
[2016-10-25] MEDS: Pantoprazole 20 mg ER24 Tablet PO SCH ×2 (07:24→19:15)
[2016-10-25] MEDS: ARNUITY ELLIPTA INHALATION SCH (07:24)
[2016-10-25] MEDS: MeTOProlol XL 25 mg ER24 Tablet PO SCH (07:26)
[2016-10-25] MEDS: Albuterol 2.5 mg/3 mL Inhalation Solution NEB PRN (07:49)
[2016-10-25] MEDS ORDERED: HYDROmorphone 2 mg/mL Inj ONE (15:24)
[2016-10-25] MEDS ORDERED: MeTOProlol 1 mg/mL 5 mL Inj ONE (15:24)
[2016-10-25] MEDS ORDERED: fentaNYL-PF 50 mCg/mL 2 mL Inj ONE (15:24)
[2016-10-25] MEDS ORDERED: Dexamethasone 4 mg/mL Inj ONE (15:24)
[2016-10-25] MEDS ORDERED: Lidocaine PF 1% 30 mL Inj ONE (15:24)
[2016-10-25] MEDS ORDERED: Ondansetron 2 mg/mL 2 mL Inj ONE (15:24)
[2016-10-25] MEDS ORDERED: Rocuronium 10 mg/mL 5 mL Inj ONE (15:24)
[2016-10-25] MEDS ORDERED: Propofol 10,000 mCg/mL 20 mL Inj ONE (15:24)
[2016-10-25] MEDS ORDERED: Succinylcholine Chloride 20 mg/mL 5 mL Inj ONE (15:24)
[2016-10-25] MEDS ORDERED: Phenylephrine/NS-PF 100 mCg/mL 5 mL Syringe IVPUSH ONE (15:24)
--- NOTE | 2016-10-25 15:52 | PCM.HPANE ---
Patient Data Date of Service: October 25, 2016 Surgeon Admitting Provider:Ryland Mcarthur MD Attending Provider:Ryland Mcarthur MD Primary Care Physician:Michelle Perez MD Other Provider: Reason for Visit Chest Pain, Acs Ht/WT & BMI Height (Feet): 4 Height (Inches): 11.00 Weight (Kilograms): 88.000 Body Mass Index 39.56 Allergies Coded Allergies: Penicillins (Verified Allergy, Severe, 10/17/16) latex (Verified Allergy, Severe, 10/17/16) prochlorperazine (Verified Allergy, Severe, 10/17/16) hydrocodone (Verified Allergy, Intermediate, rash, 10/17/16) diltiazem (Verified Allergy, Mild, edema, 10/17/16) TAPE (Verified Allergy, Unknown, 10/17/16) aspirin (Verified Allergy, Unknown, 10/17/16) ibuprofen (Verified Allergy, Unknown, 10/17/16) oxycodone (Verified Allergy, Unknown, Tolerates percocet, 10/17/16) Past Anesthesia History Anesthesia History: Denies:: Anesthesia Reactions Diabetes History Hx Diabetes?: No MRSA MRSA: No Medications Hypertension Medication: Yes Home Meds Incl Beta Devyn: Yes Date Beta Devyn Taken: October 24, 2016 Time Beta Devyn Taken: 07:50 Previous Beta Devyn Dose >24: Give Dose Perioperatively Reported Medications Acetaminophen (Pain Relief)325 Mg [id number] Mg PO QID PRN For Pain 10/17/[address] (Prevacid)30 Mg Flqquid55 Mg PO DAILY 10/17/16 Diazepam 2 Mg Tablet2 Mg PO BID PRN anx 10/17/16 Bisacodyl (Dulcolax)5 Mg Tablet.dr10 Mg PO DAILY PRN For Constipation 10/17/16 Fexofenadine 180 Mg Trssmf024 Mg PO DAILY 10/17/16 Multivits&Mins/FA/Coenzyme Q10 (Aquadeks Chewable Tablet)1 Each Tab.chew1 Each PO DAILY 10/17/16 Furosemide 40 Mg Bjzjpk34 Mg PO DAILY 10/17/16 Fluticasone Furoate (Arnuity Ellipta)100 Mcg Blst.w.dev1 Puff INHALATION DAILY 10/17/16 Citalopram 40 Mg Reudjv79 Mg PO HS 10/17/16 Albuterol Sulfate (Ventolin HFA Inhaler)200 Puff/18 Gm Inhaler2 Puffs INHALATION QID PRN For Shortness of Breath 10/17/16 Metoprolol Succinate ER (Toprol XL)25 Mg Ijikin57 Mg PO DAILY Ref 0 06/25/16 Gabapentin 100 Mg Amgcyon800 Mg PO HS Ref 0 06/25/16 Tamoxifen Citrate 20 Mg Agwamm00 Mg PO DAILY 03/05/16 Ropinirole 1 Mg Tablet2 Mg PO HS 07/16/15 Cholecalciferol (Vitamin D3) (Vitamin D)1,000 Unit Tablet1,000 Unit PO DAILY #1 BOTTLE Ref 0 07/16/15 0.9 % Sodium Chloride (Nasal Mist)126 Ml Spray2 Sprays NS BID PRN dry nose 07/16/15 Levothyroxine (Levoxyl)50 Mcg Taogfo97 Mcg PO DAILY Ref 0 06/27/15 Fluticasone Propionate (Flonase Allergy Relief)50 Mcg/Actuation [place].susp2 Sprays NS DAILY 06/27/15 Tramadol 50 Mg Yzpqdt27-514 Mg PO Q6 PRN For Pain Ref 0 08/23/14 History History of ENT Problems?: Yes HEENT History: Positive for:: Cataracts (Removed 1993) Dysphagia Sinus Problem (hayfever) Denies:: Glaucoma Denture Type: None Teeth Condition: Missing Teeth Hx of Heart Problems?: Yes Cardiovascular History: Positive for:: Chest Pain Edema Irregular Heartbeat Denies:: Cardiac Surgery Congestive Heart Failure Heart Murmur Hypertension Pacemaker Thrombophlebitis Hx of Respiratory Problem?: No Respiratory History: Positive for:: Chest Surgery (mastectomy) Pneumonia (1 year ago) Denies:: Asthma COPD Dyspnea Emphysema Hemoptysis Tuberculosis Hx Neurologic Problems?: Yes Neurological History: Denies:: Alzheimer's Disease CVA Dementia Dizziness Headaches Parkinson's Disease Seizures Hx of GI Problems?: Yes Hx of Problems?: No Genitourinary History: Denies:: HX of Hemodialysis Kidney Stones Urinary Tract Infection HX of Peritoneal Dialysis: No Female Hx: Positive for:: Problems with Breasts? (L mastectomy) Denies:: Currently Endometriosis Pelvic Inflammatory Hx Musculoskeletal Problems?: Yes Musculoskeletal History: Positive for:: Back Injury (pain) Musculoskeletal Trauma (whiplash) Denies:: Joint Replacement Hx of Psycho/Social Problems?: Yes Psycho Social History: Positive for:: Hx Depression Denies:: Anxiety Bipolar Disorder Suicide Attempt Hx Surgeries?: Yes (breast ca reconstruction, stomach - acid reflux, catarac, jaw, hammer toe, ) Hx Any Other Health Problems?: Yes Other History: Positive for:: Cancer (breast) Hospitalization (breast ca, pancreatitis) Thyroid Disease (hypothyroid) History Blood Transfusions: Positive for:: Accept Blood Products? Blood Transfusions Denies:: Blood Transfuse Reaction Hx Diabetes: No Hx Alcohol Use: NoHx Substance Use: No Smoking Status: Never Smoker Have You Smoked inLast 12 mo: No Stop/Bang Treated for Sleep Apnea?: No Do You Have a CPAP Machine?: No S-Snoring: Do You Snore Loudly: Yes T-Tired: feel tired, fatigued: Yes O-Obsered: Observed not breath: No P-Blood Pressure: treated: No B- Body Mass Index > 35 kg/m2: Yes A- Age over 50: Yes N- Neck Large Circumference: No G- Gender Male: No FELIX Total Score: 4 FELIX Risk Assessment: Low Risk, <3 Yes FELIX Category 2: Yes Risk Assessment Category Category 1A: Patient has history of documented sleep apnea, and HAS NOT received any narcotic, sedative or anesthesia administration during this stay. Category 1B: Patient has history of documented sleep apnea, and HAS received any narcotic , sedative or anesthesia administration during this stay Category 2: Patient has SUSPECTED Obstructive Sleep Apnea, and HAS received any narcotic , sedative or anesthesia administration during this stay. Category 3: Patient has SUSPECTED Obstructive Sleep Apnea and HAS NOT received narcotic, sedative or anesthesia administration during this stay. Category 4: Outpatient in Procedural Areas with known sleep apnea or who screen positive for High Risk via the STOP/BANG questionnaire. Exam Exam Vital Signs Vital Signs Date Time Temp Pulse Resp B/P Pulse Ox O2 Delivery O2 Flow Rate FiO2 10/25/16 12:00 36.9 80 20 123/70 96 Room Air 10/25/16 07:49 79 16 96 Room Air General Appearance: Alert, Oriented X3, Cooperative, No Acute Distress HEENT/AIRWAY: MP 2 Lungs: Clear to Auscultation, Normal Air Movement Heart: Exam Unremarkable, No Murmurs/Rubs/Gallops, Other (irregular hr) Meds/Labs/Diagnostics Labs Test 10/17/16 18:07 10/17/16 19:00 10/17/16 21:04 10/18/16 08:20 Hold Bae Top Tube Received (Received) Hold Urine Received (Received) Total Creatine Kinase 96U/L (21-215) Creatine Kinase MB 2.0ng/mL (0.0-5.3) Creatine Kinase MB % % (0.0-5.0) Hemoglobin A1c 5.4% (4.8-5.6) Triglycerides Level 118mg/dL (0-149) Cholesterol Level 253mg/dL (100-199) LDL Cholesterol, Calculated 175.400mg/dL (0-99) VLDL Cholesterol 23.600mg/dL HDL Cholesterol 54mg/dL (>39) Cholesterol/HDL Ratio 4.69 (0.0-4.4) Thyroid Stimulating Hormone (TSH) 3.120uIU/mL (0.450-4.500) Free Thyroxine 1.11ng/dL (0.82-1.77) Test 10/18/16 14:30 10/22/16 05:05 10/24/16 05:15 10/25/16 05:27 Troponin T < 0.010ug/L (0.0-0.011) Phosphorus Level 3.0mg/dL (2.5-4.9) Magnesium Level 1.8mg/dL (1.6-2.6) White Blood Count 5.0th/mm3 (3.8-10.1) Red Blood Count 3.20mil/mm3 (3.90-5.20) Hemoglobin 10.5g/dL (12.0-15.6) Hematocrit 32.9% (35.0-46.0) Mean Corpuscular Volume 102.8fL (81-100) Mean Corpuscular Hemoglobin 32.8pg (27.0-35.0) Mean Corpuscular Hemoglobin Concent 31.9% (32.0-37.0) Red Cell Distribution Width 13.2% (12.3-15.4) Platelet Count 232bil/L (150-400) Neutrophils (%) (Auto) 55.3% (40-74) Lymphocytes (%) (Auto) 27.1% (14-46) Monocytes (%) (Auto) 10.9% (4-12) Eosinophils (%) (Auto) 6.3% (0-5) Basophils (%) (Auto) 0.2% (0-3) Total Bilirubin 0.4mg/dL (0.0-1.2) Aspartate Amino Transf (AST/SGOT) 28U/L (0-50) Alanine Aminotransferase (ALT/SGPT) 26U/L (0-32) Alkaline Phosphatase 130U/L (25-150) Total Protein 6.1g/dL (6.4-8.4) Albumin 3.1g/dL (3.4-5.0) Procalcitonin 0.14ng/mL (0.00-0.08) Sodium Level 142mEq/L (134-144) Potassium Level 4.2mEq/L (3.5-5.2) Chloride Level 106mEq/L (97-108) Carbon Dioxide Level 21mmol/L (18-29) Blood Urea Nitrogen 17mg/dL (6-24) Creatinine 1.51mg/dL (0.57-1.00) Estimat Glomerular Filtration Rate 51mL/min (>59) Glucose Level 97mg/dL (60-99) Calcium Level 8.4mg/dL (8.5-10.1) C-Reactive Protein 2.8mg/dL (0.0-0.5) Lipase 134U/L (13-60) Plan Impression Patient chart reviewed, patient interviewed and anesthestic plan with risks, benefits, and alternatives discussed, and informed consent obtained. NPO per Anesth. Guidelines: Yes ASA Physical Status: ASA3 Severe Disease Anesthetic Plan: GA Bene/Risks/Altern/Consents: Yes HP Complete Prior to Induction: Yes Mohamud Kasper MD October 25, 2016 15:52
[2016-10-25] MEDS ORDERED: Lactated Ringer's 1,000 ML IV ONE (16:11)
[2016-10-25] MEDS ORDERED: Atropine 0.4 mg/mL Inj IVPUSH PRN (16:35)
[2016-10-25] MEDS ORDERED: fentaNYL-PF 50 mCg/mL 2 mL Inj IVPUSH PRN (16:35)
[2016-10-25] MEDS ORDERED: HYDROmorphone 1 mg/mL Inj IVPUSH PRN (16:35)
[2016-10-25] MEDS ORDERED: EPHEDrine Sulfate 50 mg/mL Inj IVPUSH PRN (16:35)
[2016-10-25] MEDS ORDERED: hydrALAZINE 20 mg/mL Inj IVPUSH PRN (16:35)
[2016-10-25] MEDS ORDERED: Ondansetron 2 mg/mL 2 mL Inj IVPUSH PRN (16:35)
[2016-10-25] MEDS ORDERED: Lactated Ringer's 1,000 ML IV SCH (16:35)
[2016-10-25] MEDS ORDERED: Labetalol 5 mg/mL 4 mL Inj IV PRN (16:35)
[2016-10-25] MEDS ORDERED: Lactated Ringer's 500 ML IV PRN (16:35)
[2016-10-25] MEDS ORDERED: MetoCLOpramide 5 mg/mL 2 mL Inj IVPUSH PRN (16:35)
[2016-10-25] MEDS ORDERED: Phenylephrine 10,000 mCg/mL Inj IVPUSH PRN (16:35)
[2016-10-25] MEDS ORDERED: Bupivacaine-MPF 0.5% W/EPI 30 mL Inj INFILTRATE ONE (16:40)
[2016-10-25] MEDS ORDERED: Iopamidol-300 50 mL Inj IV ONE (16:40)
--- NOTE | 2016-10-25 17:37 | PCM.ANEP1 ---
Post Anesthesia Phase 1 PACU Phase 1 Assessment Date of Service: October 25, 2016 Vital Signs 36.6 163/83 94 18 96% FM Anesthetic Administered: GA Level of Alertness: Sleeping, hard to arouse ROCHE's with Equal Strength: Yes Pain: No (Level 4 - stomach) Nausea or Vomiting: No Cardiovascular Function and Hy: Yes Oxygen Delivery: Simple Mask Lungs: Clear to Auscultation, Normal Air Movement Complications: No Follow up Care: No Patient Instructions Provided: Yes Mohamud Kasper MD October 25, 2016 17:37
--- NOTE | 2016-10-25 19:38 | DRSVH ---
PROCEDURE: X-RAY OPERATIVE CHOLANGIOGRAM ([id number]) INDICATIONS: 56-year-old female with pancreatitis, undergoing laparoscopic cholecystectomy. COMPARISON: [facility], CT, CT ABD PEL[facility] W CON[facility], 10/24/2016, 11:02. FINDINGS: Biliary ducts: The surgeon injected contrast into the biliary ducts after cannulation of the cystic duct stump. Visualized intra- and extrahepatic bile ducts are normal in caliber, without strictures. No intraluminal filling defects to suggest retained ductal stones or sludge. No evidence for iatro genic ductal injury. Duodenum: Contrast flows promptly through the sphincter of Oddi into the duodenum, which appears nor mal in caliber. IMPRESSION: Normal intraoperative cholangiogram. Dictated by: Caden Hutchinson M.D. on 10/25/2016 at 19:35 Approved by: Caden Hutchinson M.D. on 10/25/2016 at 19:37
--- NOTE | 2016-10-26 01:02 | OP ---
[address] [address] OPERATIVE REPORT PATIENT: VLAD ENCINAS : 1960 MR#: [id number] ADMIT: 10/17/2016 JOB ID: [id number] DATE OF SURGERY: 10/25/2016 PREOPERATIVE DIAGNOSIS(ES): Gallstone pancreatitis. POSTOPERATIVE DIAGNOSIS(ES): Gallstone pancreatitis. PROCEDURE: Laparoscopic cholecystectomy with intraoperative cholangiogram. SURGEON: Sergio Virgen MD. SLAB LIFTING ENGINEER: Oswaldo Haywood PA-C. INDICATIONS: This is a 56-year-old female who has had an episode of pancreatitis and has gallstones which may be the cause. She is recommended to come to the operating room for laparoscopic cholecystectomy. She was seen initially by my partner, Dr. Reyes, and I have seen the patient this morning, reviewed plans for operation with her, and she has agreed to proceed with me as her surgeon. FINDINGS: 1. seed laboratory assistant was medically necessary for retraction, camera operation, and safe and efficacious procedure. 2. The patient had evidence of previous inflammation around the gallbladder, with multiple filmy adhesions, either due to pancreatitis or previous cholecystitis. 3. Normal intraoperative cholangiogram with the cystic duct going into the right hepatic duct. DESCRIPTION OF PROCEDURE: The patient was brought to the operating room. General anesthetic was administered. SCOAP protocol was followed. She received perioperative Ancef. Abdomen was prepped and draped in sterile fashion. Surgical time-out was performed. We obtained access with an optical trocar by the umbilicus. We placed three additional ports. The patient had central obesity. Liver edges were a bit blunted and had gross appearance consistent with hepatic steatosis. The adhesions from the colon were taken down off the gallbladder and the gallbladder was retracted cephalad. We continued dissecting down along the gallbladder wall and got to what appeared to be a long gallbladder neck with a cystic duct entering the gallbladder. I placed a clip on the gallbladder side and made an incision in the cystic duct. We placed our cholangiocatheter and obtained a cholangiogram. Demonstrated good filling of the intra and extrahepatic bile ducts with normal anatomy with a variant of the cystic duct apparently entering the right hepatic duct. There were no filling defects and there was a vigorous lumen of dye into and through the duodenum. We removed our cholangiocatheter and placed two clips on the patient's side of the cystic duct. We then divided the cystic duct and dissected the gallbladder out of the liver bed. There was some spillage of bile, but this was controlled. I would note that the patient did have a cystic duct stone that was removed prior to the cholangiogram. Once we got the gallbladder out of the liver bed, we placed it in a bag and removed it. I then irrigated out briskly to get all the bile spill out. Hemostasis was good. We suctioned out all of our irrigation, removed our ports, and closed the wounds with absorbable suture. The patient tolerated the procedure well.
[2016-10-26] MEDS: 0.9% Sodium Chloride 1,000 ML IV SCH ×2 (04:01→13:22)
[2016-10-26] MEDS: Heparin 5,000 Unit/mL Inj SUBQ SCH ×2 (04:10→07:39)
[2016-10-26 04:15] VITALS: BP 111/57; PULSE 90; RESP 18; O2SAT 97
[2016-10-26] MEDS: Polyethylene Glycol (PEG) 17 Gm Powder PO PRN (04:30)
--- NOTE | 2016-10-26 05:15 | PCM.PNSURG ---
Subjective Date of Service: October 26, 2016 Date of Service: October 26, 2016 Visit Information: Reason for Visit Chest Pain, Acs Surgery/Surgery Date 10/25/2016 Post-Op Day # 1 Date of Admission: October 17, 2016 at 20:46 Hospital Day # 10 Subjective: Overnight no events reports. She feels good overall though does have some abdominal soreness. She is able to ambulate independently and able to tolerate a general diet. She has not passes Flatus or had a BM since the operation, making good urine. Denies fever/chills, nausea/vomiting, CP or SOB. She is concerned about her discharge. She has not lived independently for over 10 years and is currently in the process of securing a residence. She states that she does have family in the area that may be able to take her in. Social work following. Objective Vital Sign- Last 8 Hours Date Time Temp Pulse Resp B/P Pulse Ox O2 Delivery O2 Flow Rate FiO2 10/26/16 04:15 36.7 90 18 111/57 97 Nasal Cannula 3.00 10/25/16 23:46 37.0 91 17 115/69 97 Nasal Cannula 3.00 Intake and Output- Last 8 Hour 10/26/16 Cumulative From/Thru 06:59 10/17/16 17:30 - 10/25/16 18:33 Intake Total 34548 ml Output Total 07164 ml Balance 445 ml Intake Oral 22269 ml IV Total 7109 ml Output Urine Total 17076 ml Emesis 20 ml # Voids 3 # Bowel Movements 1 General: Alert, Oriented X3, Cooperative Lungs: Clear to Auscultation, Normal Air Movement Heart: Exam Unremarkable, Regular Rate/Rhythm Abdomen: Benign (Obese), Soft, Appropriately tender, Normoactive bowel tones SURGICAL WOUND : Wound Location/Description Trocar sites non erythematous, slightly tender to palpation. Bandages with some dried blood though mostly intact. Result Diagram: 10/24/1651410/25/16 0527 Diagnostics: . CT ABDOMEN AND PELVIS WITH CONTRAST IMPRESSION: 1. Acute pancreatitis without definite pancreatitis complications, such as abscess, necrosis, or pseudocyst formation. 2. Cholelithiasis. 3. Probable hepatic steatosis. 4. Moderate-sized hiatal hernia. 5. Mild enlargement of the heart. 6. Postoperative changes of the left breast. Dictated by: King Hughes M.D. on 10/18/2016 at 14:24 MR ABDOMEN MRCP IMPRESSION: 1. Cholelithiasis without evidence of cholecystitis or choledocholithiasis. 2. No pseudocysts or peripancreatic edema. 3. Moderate sized hiatal hernia. Dictated by: Srikanth Green M.D. on 10/24/2016 at 12:20 X-RAY OPERATIVE CHOLANGIOGRAM IMPRESSION: Normal intraoperative cholangiogram. Dictated by: Caden Hutchinson M.D. on 10/25/2016 at 19:35 Assessment & Plan Impression Assessment & Plan: 1. Gallstone Pancreatitis - status post laparoscopic cholycystectomy without complication - remains afebrile and without leukocytosis - stable for discharge to home follow up in surgery clinic with DM in 1-2 weeks - pain is well managed with Tylenol Other conditions: 2. Hypothyroid -Continue home Levothyroxine 50 mcg 3. Frequent PVCs -Continue home Metoprolol XL 25 mg. Repeat TTE/stress test unremarkable for ACS 4. Depression with anxiety -Continue home Citalopram -Continue home Diazepam PRN 5. Restless leg syndrome -Continue home Ropinirole 6. Chronic pain -Continue home Tramadol -Continue home Gabapentin 7. Hypertension -Continue home Lasix 40mg -Metoprolol as above 8.hx of breast CA, stageII s/p mastectomy, -continue tamoxifen, Problems: VTE Prophylaxis: Sub-Q Heparin (Unfractionated) Resuscitation Status: CPR: Attempt Resuscitation Attending Statement: I agree with Dr. Solitario's assessment and plan. SID SOLITARIO DO October 26, 2016 05:15 Abhishek Lyn MD November 04, 2016 16:28
[2016-10-26 06:49] LABS: BASOPHILS % (AUTO) 0 % (0-3); EOSINOPHILS % (AUTO) 0 % (0-5); MONOCYTES % (AUTO) 8.3 % (4-12); Mean Corpuscular Hemoglobin 32.7 pg (27.0-35.0); Mean Corpuscular Volume 104.5 fL (81-100); NEUTROPHILS % (AUTO) 78.8 % (40-74); Platelet Count 244 bil/L (150-400)
[2016-10-26 07:22] VITALS: BP 116/74; PULSE 86; RESP 16; O2SAT 93
[2016-10-26] MEDS: Pantoprazole 20 mg ER24 Tablet PO SCH (07:39)
[2016-10-26] MEDS: MeTOProlol XL 25 mg ER24 Tablet PO SCH (07:39)
[2016-10-26] MEDS: ARNUITY ELLIPTA INHALATION SCH (07:42)
[2016-10-26] MEDS: Sodium Chloride LOK Flush 10 mL Syringe IVFLUSH SCH (07:43)
[2016-10-26 11:11] VITALS: PULSE 86; RESP 18; O2SAT 93
--- NOTE | 2016-10-26 14:02 | PCM.DIMED ---
Discharge Instructions Date of Service October 26, 2016 Dates of Hospitalization October 17, 2016 at 20:46 Discharge Diagnosis Discharge Diagnosis 1. Pancreatitis, poa, resolved 2. Gallstones, poa, removed 2. Hypothyroid, present on admission, stable 3. Frequent PVCs, present on admission, chronic. 4. Depression with anxiety, present on admission, chronic. 5. RLS, present on admission, chronic 6. Chronic pain, present on admission, stable 7. HTN, present on admission, stable 8.hx of breast CA, stageII s/p mastectomy, Call your provider Fever or Chills, Bleeding Patient Instructions Follow-up plan follow up with your primary care provider in a week or so your nurse will review set up any surgical follow up Follow-up with PCP in: 1 week Winsome Barraza MD October 26, 2016 14:02
--- NOTE | 2016-10-26 14:10 | PCM.DC.MED ---
Discharge Summary Date of Service October 26, 2016 Dates of Hospitalization Date of Hospital Admission October 17, 2016 at 20:46 Date of Discharge: October 26, 2016 Providers: Admitting Physician: Ryland Mcarthur MD Primary Care Physician: Michelle Perez MD Attending Physician: Ryland Mcarthur MD Diagnosis at Time of Discharge Diagnosis at Time of Discharge 1. Pancreatitis, poa, resolved 2. Gallstones, poa, removed, sp cholicystectomy 2. Hypothyroid, present on admission, stable 3. Frequent PVCs, present on admission, chronic. 4. Depression with anxiety, present on admission, chronic. 5. RLS, present on admission, chronic 6. Chronic pain, present on admission, stable 7. HTN, present on admission, stable 8.hx of breast CA, stageII s/p mastectomy, Consultations DATE OF SERVICE: 10/24/2016 CHIEF COMPLAINT: Gallstone pancreatitis. HISTORY OF PRESENT ILLNESS: This is a 56-year-old woman who was admitted to the hospital several days ago with an episode of what she describes as chest pain with radiation to the jaw and associated diaphoresis. She was concerned about her heart and therefore presented to the emergency department. She underwent assessment of her overall clinical status and was found to have pancreatitis with a lipase on admission of 3750. With conservative management, her symptoms have improved and her current lipase is now 95. Her white blood cell count has been normal throughout her admission. A CT scan was also performed on October 18 which showed acute pancreatitis without abscess, necrosis or pseudocyst. Cholelithiasis was also noted on the CT scan. According to her hospital notes, she has had four or five episodes of pancreatitis in the past with no history of alcohol abuse, and no common bile duct dilation seen on CT or MRCP. She also has a normal triglyceride level. PAST MEDICAL HISTORY: 1. Stage II, T2 N1, left-sided invasive ductal carcinoma in remission status post mastectomy. 2. Hypothyroidism on Synthroid. 3. Anemia. 4. Pancreatitis. 5. PVCs. 6. Restless legs and peripheral edema. 7. Cholelithiasis. 8. GERD. 9. Depression. SURGICAL HISTORY: 1. Left mastectomy with tissue reconstruction. 2. Laparoscopic hiatal hernia repair with Sung fundoplication. She reports that this was at [facility] in [place] in approximately 1995. 3. Jaw reconstruction. 4. Surgery on the 5th digits of bilateral toes. MEDICATIONS: 1. Synthroid. 2. Pantoprazole. 3. Furosemide. 4. Metoprolol. 5. Claritin. 6. Tamoxifen. 7. Gabapentin. 8. Ropinirole. 9. Citalopram. 10. Atorvastatin. 11. Heparin. ALLERGIES: 1. PENICILLIN. 2. TAPE. 3. ASPIRIN. 4. DILTIAZEM. 5. HYDROCODONE. 6. IBUPROFEN. 7. LATEX. 8. OXYCODONE. 9. PROCHLORPERAZINE. FAMILY HISTORY: Her father has ulcerative colitis. Her grandfather had diabetes and of a heart attack in his 80s. SOCIAL HISTORY: She denies alcohol, tobacco and drug use. She has never been a smoker. REVIEW OF SYSTEMS: Eleven point review of systems is performed and is positive for abdominal pain and nausea and is otherwise negative. PHYSICAL EXAMINATION: Temperature 37.1, heart rate 77, blood pressure 113/59, respiratory rate of 18, saturation 98% on room air. General: Awake, alert, no acute distress. Head: Normocephalic. Neck: Supple. Cardiac: Regular rate and rhythm, no murmurs, rubs, or gallops. Respiratory: Lungs clear to auscultation bilaterally. Abdomen: Soft, no tenderness on examination this afternoon in four quadrants. Extremities: No edema. Psychiatric: Normal cognition and judgment. Neurologic: No gross deficits. LABS: Current lipase is 95, and, as noted above, on admission it was 3750. Comprehensive metabolic panel is within normal limits with exception of creatinine of 1.31 and albumin of 3.1. CBC is within normal limits. IMAGING: Images from abdominal CT scan are personally reviewed and reveal cholelithiasis and acute pancreatitis on October 18, 2016. She also has a hiatal hernia and appears to have her previous fundoplication herniating into the chest. Probable hepatic steatosis, mild enlargement of the heart, and postoperative changes of the left breast were also noted by the radiologist. MRCP dated today shows cholelithiasis without evidence of cholecystitis or choledocholithiasis. No pseudocyst or pancreatic edema. Moderate hiatal hernia. In 2006 she has a report (but no images in PACS) stating she has pancreas divisum. ASSESSMENT: A 56-year-old woman with cholelithiasis in the setting of pancreatitis without definitive source. RECOMMENDATION: I recommend laparoscopic cholecystectomy on this admission given the possibility that her cholelithiasis could be contributory as the etiology of her pancreatitis. This has been discussed with her by other providers previously and she agrees. We discussed potential risks including infection, bleeding, and injury to surrounding structures. She understands and elects to proceed. This will be added to the operative schedule for tomorrow, and to be performed by my partner, Dr. Hill, who will be on-call at that time. The patient understands and agrees. She has pancreas divisum based on ERCP in 2006, and it is possible that the etiology of her pancreatitis is related to this. Therefore we discussed the possibility of recurrent pancreatitis; if this were to occur down the road in the absence of a gallbladder/ cholelithiasis/ choledocholithiasis, I would investigate this as a potential etiology in the absence of other explanation. The patient also asked if her recurrent hiatal hernia could be repaired at the same time. The answer to this question is no, as this is a longstanding issue and a redo fundoplication is a large, extensive operation, which requires a thorough assessment and workup. I have therefore recommended to her that she follow up in my clinic on an outpatient basis 2-4 weeks after this hospitalization if she would like to discuss this further. One hour was spent on this patient visit, >50% in counseling and/or coordination of care. Noreen Reyes MD 10/24/161956 Procedures XRay, CTs & MRIs PROCEDURE: CT ABDOMEN AND PELVIS WITH CONTRAST ([id number]) INDICATIONS: possible pancreatitis TECHNIQUE: After the administration of oral and intravenous contrast, 5 mm thick sections acquired from the diaphragms to the symphysis. 5 mm thick coronal and sagittal reformats were performed. For radiation dose reduction, the following was used : automated exposure control, adjustment of mA and/or kV according to patient size. COMPARISON: [facility], CT, ABD/PELVIS W/CON (PN), 04/14/2014, 2: 25. FINDINGS: Image quality: Diagnostic. ABDOMEN: Lung bases: Lung bases are clear. Heart size is slightly prominent in size. Postoperative changes of the left chest are suggestive of prior mastectomy with surgical flap placement. No associated loculated fluid collections are evident. Solid organs: The liver is mildly hypodense when compared to the spleen. Small gallstones are seen within the dependent aspect of the gallbladder. No intrahepatic or extrahepatic biliary dilatation is evident. The spleen, adrenals, and kidneys are within normal limits. The pancreas is slightly enlarged. Mild edema is noted about the head and uncinate process of the pancreas predominantly. Expected enhancement of the pancreas is noted. No peripancreatic fluid collections are appreciated. The splenic vein, superior mesenteric artery, splenic artery, and superior mesenteric vein are intact and within normal limits. Peritoneum and bowel: There is a moderate-sized hiatal hernia. Otherwise, the stomach, duodenum, and remainder of the small bowel loops are nondilated. Moderate residual stool is identified within the colon. There is mild distal colonic diverticulosis without surrounding inflammation to suggest acute diverticulitis. No significant free fluid is evident. There is no loculated fluid collection or free air. Nodes and vessels: No retroperitoneal or mesenteric adenopathy. Aorta and inferior vena cava are normal in caliber. There is mild aortic atherosclerosis. Bones: No suspicious osseous lesions are acute fractures of the imaged thoracolumbar spine are present. Age-appropriate degenerative changes of the spine are noted. PELVIS: Genitourinary: Bladder wall thickness is normal. The uterus and ovaries are not enlarged. Miscellaneous: No inguinal hernias or adenopathy. No free fluid, loculated fluid collection or free air is evident. Bones: A small sclerotic lesion involving the superior left pubic ramus is unchanged. Mild irregularity along the inner table of the left iliac wing also is unchanged. No new pelvic lesions are evident. There are no acute pelvic fractures. IMPRESSION: 1. Acute pancreatitis without definite pancreatitis complications, such as abscess, necrosis, or pseudocyst formation. 2. Cholelithiasis. 3. Probable hepatic steatosis. 4. Moderate-sized hiatal hernia. 5. Mild enlargement of the heart. 6. Postoperative changes of the left breast. Cardiac Echo Impression Echocardiogram Report Name: DELFINA ENCINAS AStudy Date: 10/18/2016 Height: 59 in Hospital Exam Location: [facility] Weight: 194 lb Gender: Female BSA: 1.8 m2 : 1960 Age: 56 yrs BP: 127/73 mmHg Reason For Study: Chest pain Ordering Physician: HOSPITALIST [facility] Performed By: Aryan Acosta Referring Physician: TAMMY CHRISTOPHER Interpretation Summary 1. Normal left ventricular size, normal wall thickness with an estimated EF of 50-55% 2. Grossly normal right ventricular size and systolic function. 3. Borderline mitral valve prolapse with an eccentric regurgitant jet (at least moderate in severity). 4. Mild to moderate tricuspid regurgitation. The estimated RVSP is 34 mm Hg On the previous study, the mitral regurgitation was graded as mild Brief History Delfina Encinas is a 56 year old woman with a PMH of Stage II, T2 N1 left-sided invasive ductal carcinoma in remission s/p mastectomy, Hypothyroidism, Macrocytic anemia, pancreatitis, RLS, PVCs, GERD, gallstones, mild developmental delay, and depression who presents following an aborted stress test at [facility] which was stopped due to chest pain with radiation to the jaw and associated diaphoresis. She was taken to the [facility] ER following manifestation of symptoms and given Nitro and ASA which transiently alleviated her symptoms, Trop was negative x2 at [facility]; however given the concerning nature of the patient' s symptoms and the need to complete her stress test the patient was transferred to [facility] for further evaluation and completion of her stress test tomorrow. She states that her chest pain has been waxing and waning since onset, responsive to Nitro, and she has begun to feel nauseous which was responsive to Zofran. She states her current pain level is approximately 3/10, but that she feels as if it could return at any moment. In the ED at [facility] the patient has an additional negative Trop, and an ECG which was unchanged from her prior ECG and not indicative of any acute ST changes. Cardiology has been made aware of the patient and will follow up to complete her stress test tomorrow. Hospital Course Delfina Encinas is a 56 year old woman with a PMH as listed above, who had to abort a stress test at [facility] for chest pain with radiation to the left arm and jaw with associated diaphoresis. Serial Trop negative x3 between UG and out ED , however, given the concerning nature of her symptoms and her inability to complete her stress test she presented to [facility] for completion of her stress test tomorrow and trending of her cardiac biomarkers to ensure there is no cardiac process underlying her pain. Now diagnosed with pancreatitis. 1. Pancreatitis, poa, resolved -this is 4 or 5thi episode. no ETOH abuse, no CBD dilatation but small GB stones , TG level WNL. no SIRS -still mildly symptomatic with pain after eating, patient will be watched today and repeat lipase, CMP, CRP, procal. -will talk with dietary for a more bland diet today, and hydrate at 80cc/hour -lap ana rosa 10/25/16 2. Gallstones, poa, removed -patient would like to see surgeon, I discussed with Dr. Reyes who will see patient about her gall stones, consider cholecystectomy -continue fluid hydration, -lap ana rosa 10/25/16 2. Hypothyroid, present on admission, stable -Continue home Levothyroxine 50 mcg 3. Frequent PVCs, present on admission, chronic. -Continue home Metoprolol XL 25 mg. Repeat TTE/stress test unremarkable for ACS 4. Depression with anxiety, present on admission, chronic. -Continue home Citalopram -Continue home Diazepam PRN 5. RLS, present on admission, chronic -Continue home Ropinirole 6. Chronic pain, present on admission, stable -Continue home Tramadol -Continue home Gabapentin 7. HTN, present on admission, stable -Continue home Lasix 40mg -Metoprolol as above 8.hx of breast CA, stageII s/p mastectomy, -continue tamoxifen, Code Status: FULL CODE dispo:pcp is Xavi Argueta diet:as above dvt ppx:LMWH 10/26/16; Patient seen today will go home and stay with mother. Doing well. Exam Vital Signs (Last) Date Time Temp Pulse Resp B/P Pulse Ox O2 Delivery O2 Flow Rate FiO2 10/26/16 11:11 86 18 93 Room Air 10/26/16 07:22 36.4 116/74 10/26/16 04:15 3.00 Test 10/17/16 18:07 10/17/16 19:00 10/17/16 21:04 10/18/16 08:20 Hold Bae Top Tube Received (Received) Hold Urine Received (Received) Total Creatine Kinase 96U/L (21-215) Creatine Kinase MB 2.0ng/mL (0.0-5.3) Creatine Kinase MB % % (0.0-5.0) Hemoglobin A1c 5.4% (4.8-5.6) Triglycerides Level 118mg/dL (0-149) Cholesterol Level 253mg/dL (100-199) LDL Cholesterol, Calculated 175.400mg/dL (0-99) VLDL Cholesterol 23.600mg/dL HDL Cholesterol 54mg/dL (>39) Cholesterol/HDL Ratio 4.69 (0.0-4.4) Thyroid Stimulating Hormone (TSH) 3.120uIU/mL (0.450-4.500) Free Thyroxine 1.11ng/dL (0.82-1.77) Test 10/18/16 14:30 10/22/16 05:05 10/24/16 05:15 10/25/16 05:27 Troponin T < 0.010ug/L (0.0-0.011) Phosphorus Level 3.0mg/dL (2.5-4.9) Magnesium Level 1.8mg/dL (1.6-2.6) Procalcitonin 0.14ng/mL (0.00-0.08) C-Reactive Protein 2.8mg/dL (0.0-0.5) Test 10/26/16 06:08 White Blood Count 6.1th/mm3 (3.8-10.1) Red Blood Count 3.09mil/mm3 (3.90-5.20) Hemoglobin 10.1g/dL (12.0-15.6) Hematocrit 32.3% (35.0-46.0) Mean Corpuscular Volume 104.5fL (81-100) Mean Corpuscular Hemoglobin 32.7pg (27.0-35.0) Mean Corpuscular Hemoglobin Concent 31.3% (32.0-37.0) Red Cell Distribution Width 12.9% (12.3-15.4) Platelet Count 244bil/L (150-400) Neutrophils (%) (Auto) 78.8% (40-74) Lymphocytes (%) (Auto) 12.7% (14-46) Monocytes (%) (Auto) 8.3% (4-12) Eosinophils (%) (Auto) 0% (0-5) Basophils (%) (Auto) 0% (0-3) Sodium Level 139mEq/L (134-144) Potassium Level 5.2mEq/L (3.5-5.2) Chloride Level 104mEq/L (97-108) Carbon Dioxide Level 21mmol/L (18-29) Blood Urea Nitrogen 19mg/dL (6-24) Creatinine 1.52mg/dL (0.57-1.00) Estimat Glomerular Filtration Rate 51mL/min (>59) Glucose Level 156mg/dL (60-99) Calcium Level 8.5mg/dL (8.5-10.1) Total Bilirubin 0.2mg/dL (0.0-1.2) Aspartate Amino Transf (AST/SGOT) 30U/L (0-50) Alanine Aminotransferase (ALT/SGPT) 20U/L (0-32) Alkaline Phosphatase 130U/L (25-150) Total Protein 6.0g/dL (6.4-8.4) Albumin 3.1g/dL (3.4-5.0) Lipase 56U/L (13-60) Discharge Medications Discharge Medications Cholecalciferol (Vitamin D3) (Vitamin D) 1,000 Unit Tablet 1,000 UNIT PO DAILY ( Reported) Citalopram (Citalopram) 40 Mg Tablet 40 MG PO HS (Reported) Fexofenadine (Fexofenadine) 180 Mg Tablet 180 MG PO DAILY (Reported) Fluticasone Furoate (Arnuity Ellipta) 100 Mcg Blst.w.dev 1 PUFF INHALATION DAILY (Reported) Fluticasone Propionate (Flonase Allergy Relief) 50 Mcg/Actuation [place].susp 2 SPRAYS NS DAILY (Reported) Furosemide (Furosemide) 40 Mg Tablet 40 MG PO DAILY (Reported) Gabapentin (Gabapentin) 100 Mg Capsule 100 MG PO HS (Reported) Lansoprazole DR (Prevacid) 30 Mg Capsule 30 MG PO DAILY (Reported) Levothyroxine (Levoxyl) 50 Mcg Tablet 50 MCG PO DAILY (Reported) Metoprolol Succinate ER (Toprol XL) 25 Mg Tablet 25 MG PO DAILY (Reported) Multivits&Mins/FA/Coenzyme Q10 (Aquadeks Chewable Tablet) 1 Each Tab.chew 1 EACH PO DAILY (Reported) Ropinirole (Ropinirole) 1 Mg Tablet 2 MG PO HS (Reported) Tamoxifen Citrate (Tamoxifen Citrate) 20 Mg Tablet 20 MG PO DAILY (Reported) As needed 0.9 % Sodium Chloride (Nasal Mist) 126 Ml [place] 2 SPRAYS NS BID PRN PRN dry nose (Reported) Acetaminophen (Pain Relief) 325 Mg Capsule 650 MG PO QID PRN PRN For Pain ( Reported) Albuterol Sulfate (Ventolin HFA Inhaler) 200 Puff/18 Gm Inhaler 2 PUFFS INHALATION QID PRN PRN For Shortness of Breath (Reported) Bisacodyl (Dulcolax) 5 Mg Tablet.dr 10 MG PO DAILY PRN PRN For Constipation ( Reported) Diazepam (Diazepam) 2 Mg Tablet 2 MG PO BID PRN PRN anx (Reported) Tramadol (Tramadol) 50 Mg Tablet 50-100 MG PO Q6 PRN PRN For Pain (Reported) Followup Plan Follow-up plan follow up with your primary care provider in a week or so your nurse will review set up any surgical follow up Discharge Diet: Low fat, Low Sodium Discharge Activity: Limited until seen by PCP Follow-up with PCP in: 1 week copies to: Michelle Perez MD, D Geoffrey MD October 26, 2016 14:10
--- NOTE | 2016-10-29 14:44 | PATH ---
SURGICAL PATHOLOGY Attending Physician:Boo Hill MD CASE STATUS: Signed Out PATIENT NAME: VLAD ENCINAS PID: [id number] : 1960 DATE COLLECTED:10/25/2016 00:00 SPECIMEN: Gallbladder CLINICAL HISTORY: GALLSTONE, PANCREATITIS 1). GALLBLADDER FINAL DIAGNOSIS: 1.GALLBLADDER: CHOLELITHIASIS WITH ASSOCIATED CHRONIC CHOLECYSTITIS. ICD10 CODE K80.66 GROSS DESCRIPTION: The specimen is received in one formalin filled container labeled with the patient's name, sublabeled "gallbladder" and consists of an opened 4.5 x 3.0 x 1.0 CM gallbladder. The serosa is smooth. The wall is 0.2-0.3 CM in thickness. The mucosa is a light yellow to camp-brown in color. The lumen contains a green mucoid material and 10-15 dark black calculi which range in size from 0.1-0.5 CM. 5 branch service representative sections are submitted in one cassette. 10/26/2016 [facility] MICRO DESCRIPTION: See diagnosis. ICD-9 CODES: CPT CODES: 1: 55035 Electronically Signed Out Anthony Bonilla MD [facility] Pathology [facility] [address], [place] [address] Technical component performed at [facility], [facility] [address], [place], [address]
[2016-10-31] MEDS ORDERED: RANI150T11 PO (10:36)
== END 2016-10-26 15:25 | disposition home or self-care (01) | DRG 419 ==
LOC: SED 17:27 → MPC 20:46 → OBSVTOIN 20:46 → MPC 21:07 → MOC 10-25 08:03
PROVIDERS: ADMIT Hospitalist; ATTEND Hospitalist
PROC: BF101ZZ Fluoroscopy of Bile Ducts using Low Osmolar Contrast (ICD-10-PCS; 2016-10-25)
PROC: 0FT44ZZ Resection of Gallbladder, Percutaneous Endoscopic Approach (ICD-10-PCS; principal; 2016-10-25 14:15)
DX: K85.10 Biliary acute pancreatitis without necrosis or infection (principal); I10 Essential (primary) hypertension; E03.9 Hypothyroidism, unspecified; I49.3 Ventricular premature depolarization; F41.8 Other specified anxiety disorders; G25.81 Restless legs syndrome; G89.29 Other chronic pain; F81.9 Developmental disorder of scholastic skills, unspecified; Z85.3 Personal history of malignant neoplasm of breast; Z90.12 Acquired absence of left breast and nipple

== ENCOUNTER 2017-02-15 23:16 | Emergency (ER) | payer MEDICARE, MEDICAID ==
[~2017-02-15] VITALS: Ht 149.9 cm; Wt 85.9 kg
[~2017-02-15 23:16] MED LIST changes: -ACET-171 PO; -ACET1TAB42 PO; +ACET325C4 PO; +ALBU18HF INHALATION; -ALBU8.5H2 INHALATION; -BECL8.7A6 IH; +BISA-67 PO; -CITA20TA11 PO; +CITA40TA13 PO; +DIAZ2TAB2 PO; -DIAZ5TAB3 PO; +FEXO-106 PO; +FLUT100B INHALATION; +FURO40TA4 PO; -GUAI400T57 PO; -HYDR-656 PO; -HYDR50CA PO; -KETO10DR4 AFFECT_EYE; +LANS30CA15 PO; -LETR2.5T4 PO; -LORA10CA PO; -MULT-1018 PO; +MULT-909 PO; -OMEP20CA11 PO; -ONDA-54 PO; -OXYC1TAB24 PO; -POTA10CA42 PO; -PROM25TA14 PO; +RANI150T11 PO; -SILV25CR4 TP
[2017-02-15 23:19] VITALS: BP 146/66; PULSE 75; RESP 16; O2SAT 100
--- NOTE | 2017-02-15 23:32 | ED.REPORT ---
HPI-Chest Pain 40 and Over Date of Service Feb 15, 2017 ED Provider: Dr. Mandujano Pt is a 56 year old female with a reported hx of an irregular heartbeat, asthma , and GERD presenting to the ED complaining of palpitations and dull, aching non -radiating left sided chest pain. Associated symptoms include LE swelling ( chronic). Denies fever, chills, nausea, vomiting, SOB or wheezing. She states that twice today, she had a sharp "electrical shock" today and her heart felt like it went into a regular beat. She had abdominal surgery 4 weeks ago (hernia repair and wrap). She had a negative stress test done just after the surgery. Nursing Notes Stated Complaint: CHEST PAIN Chief Complaint: Chest Pain Nursing Notes Reviewed: Yes Allergies: Coded Allergies: Penicillins (Verified Allergy, Severe, 10/17/16) latex (Verified Allergy, Severe, 10/17/16) prochlorperazine (Verified Allergy, Severe, 10/17/16) hydrocodone (Verified Allergy, Intermediate, rash, 10/17/16) diltiazem (Verified Allergy, Mild, edema, 10/17/16) TAPE (Verified Allergy, Unknown, 10/17/16) aspirin (Verified Allergy, Unknown, 10/17/16) ibuprofen (Verified Allergy, Unknown, 10/17/16) oxycodone (Verified Allergy, Unknown, Tolerates percocet, 10/17/16) Scheduled Cholecalciferol (Vitamin D3) (Vitamin D) 1,000 Unit Tablet 1,000 UNIT PO DAILY Citalopram (Citalopram) 40 Mg Tablet 40 MG PO HS Fexofenadine (Fexofenadine) 180 Mg Tablet 180 MG PO DAILY Fluticasone Furoate (Arnuity Ellipta) 100 Mcg Blst.w.dev 1 PUFF INHALATION DAILY Fluticasone Propionate (Flonase Allergy Relief) 50 Mcg/Actuation [place].susp 2 SPRAYS NS DAILY Furosemide (Furosemide) 40 Mg Tablet 40 MG PO DAILY Gabapentin (Gabapentin) 100 Mg Capsule 100 MG PO HS Lansoprazole DR (Prevacid) 30 Mg Capsule 30 MG PO DAILY Levothyroxine (Levoxyl) 50 Mcg Tablet 50 MCG PO DAILY Metoprolol Succinate ER (Toprol XL) 25 Mg Tablet 25 MG PO DAILY Multivits&Mins/FA/Coenzyme Q10 (Aquadeks Chewable Tablet) 1 Each Tab.chew 1 EACH PO DAILY Omeprazole (Omeprazole) 20 Mg Tablet.dr 20 MG PO BID Ranitidine (Zantac) 150 Mg Tablet 150 MG PO PRN Ropinirole (Ropinirole) 1 Mg Tablet 2 MG PO HS Tamoxifen Citrate (Tamoxifen Citrate) 20 Mg Tablet 20 MG PO DAILY Scheduled PRN 0.9 % Sodium Chloride (Nasal Mist) 126 Ml [place] 2 SPRAYS NS BID PRN PRN dry nose Acetaminophen (Pain Relief) 325 Mg Capsule 650 MG PO QID PRN PRN For Pain Albuterol Sulfate (Ventolin HFA Inhaler) 200 Puff/18 Gm Inhaler 2 PUFFS INHALATION QID PRN PRN For Shortness of Breath Bisacodyl (Dulcolax) 5 Mg Tablet.dr 10 MG PO DAILY PRN PRN For Constipation Diazepam (Diazepam) 2 Mg Tablet 2 MG PO BID PRN PRN anx Tramadol (Tramadol) 50 Mg Tablet 50-100 MG PO Q6 PRN PRN For Pain General Time Seen by MD: 23:31 Chief Complaint Chest pain Hx Obtained From: Patient Arrived By: Walk-in Sudden in Onset?: No Onset Occurred: 5 - 8 hours ago Symptom Duration: Since onset Location: : Chest left Quality: Aching, Dull, Painful Severity: Current: Mild Severity: Maximum: Moderate Recent Healthcare: No recent doctor visit, No recent hospitalization Similar Sx Previous: No Past Medical History Past Medical History Notes: Residence Leasing Agent: Dr. Steen Past Medical History 1. Stage II, T2 N1 left-sided invasive ductal carcinoma in remission, s/p mastectomy 2. Hypothyroidism on Synthroid. 3. Anemia, macrocytic. 4. Pancreatitis 5. PVCs 6. Restless legs and peripheral edema 7. Developmentally delayed 8. Cholelithiasis 9. Gerd 10. Depression 11. 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 Physical Exam Initial Vital Signs Vital Signs (First) Date Time Temp Pulse Resp B/P Pulse Ox O2 Delivery O2 Flow Rate FiO2 02/15/17 23:19 36.6 75 16 146/66 100 Room Air Initial VS: Reviewed Head / Eyes: Atraumatic, Normocephalic, PERRL ENT: Mucous membranes moist, Conjunctiva normal, No scleral icterus Skin: Warm, Dry, No cyanosis Neurologic: Alert, Oriented, Nonfocal Psychiatric: Mood/affect normal, Behavior normal, Normal thought content General/Constitutional: Awake, Alert, No acute distress Respiratory / Chest: Atraumatic, Breath sounds NL, Breath sounds = bilat, No respiratory distress Cardiovascular: Heart rate NL, Heart sounds NL, No murmurs Heart Rate / Rhythm: Positive: Irregular rhythm Abdomen: Atraumatic, Soft, Non-tender Lower Extremity / Pelvis / MS: Atraumatic, Neurologic intact, Vascular intact Chronic 3+ edema. Congenital deformities of both feet. Interpretation & Diagnostics Lab Results Interpretation Result Diagram: 02/15/17 2350 02/15/17 2350 Test 02/15/17 23:50 02/16/17 00:19 02/16/17 03:00 02/16/17 03:10 White Blood Count 4.3th/mm3 (3.8-10.1) Red Blood Count 3.34mil/mm3 (3.90-5.20) Hemoglobin 11.4g/dL (12.0-15.6) Hematocrit 34.7% (35.0-46.0) Mean Corpuscular Volume 103.9fL (81-100) Mean Corpuscular Hemoglobin 34.1pg (27.0-35.0) Mean Corpuscular Hemoglobin Concent 32.9% (32.0-37.0) Red Cell Distribution Width 13.0% (12.3-15.4) Platelet Count 221bil/L (150-400) Neutrophils (%) (Auto) 40.7% (40-74) Lymphocytes (%) (Auto) 43.2% (14-46) Monocytes (%) (Auto) 11.1% (4-12) Eosinophils (%) (Auto) 4.8% (0-5) Basophils (%) (Auto) 0.2% (0-3) Sodium Level 140mEq/L (134-144) Potassium Level 4.1mEq/L (3.5-5.2) Chloride Level 106mEq/L (97-108) Carbon Dioxide Level 21mmol/L (18-29) Blood Urea Nitrogen 21mg/dL (6-24) Creatinine 1.28mg/dL (0.57-1.00) Estimat Glomerular Filtration Rate 62mL/min (>59) Glucose Level 82mg/dL (60-99) Calcium Level 8.8mg/dL (8.5-10.1) Magnesium Level 2.0mg/dL (1.6-2.6) Total Bilirubin 0.2mg/dL (0.0-1.2) Aspartate Amino Transf (AST/SGOT) 33U/L (0-50) Alanine Aminotransferase (ALT/SGPT) 25U/L (0-32) Alkaline Phosphatase 128U/L (25-150) Total Protein 7.0g/dL (6.4-8.4) Albumin 3.9g/dL (3.4-5.0) Prothrombin Time 10.3sec (8.1-12.5) Prothromb Time International Ratio 0.96ratio Activated Partial Thromboplast Time 22.1sec (22.8-33.0) D-Dimer 1.18mg/L FEU (<0.50) Pro-B-Type Natriuretic Peptide 1218pg/mL (0-249) Hold Bae Top Tube Received (Received) Troponin T 0.010ug/L (0.0-0.011) Hold Urine Received (Received) ECG Interpretation ECG Interpretation: Supraventricular beats. LVH. Time: 23:31 Interpreted by: ED physician Normal ECG Interpretation: Normal rate (71), Normal sinus rhythm X-Ray Chest Interpretation Chest Xray Interpretation: Cardiomegaly, otherwise normal. View: Portable, 1 view Interpretation / Wet Read by: Wet read ED physician CT Chest Interpretation IMPRESSION: No acute occlusive PE. Atherosclerotic disease. Other findings above. This report was transmitted to the emergency room at 02/16/2017 - 2:58:30 AM PDT. Study type: CT pulm angiogram Interpretation / Wet Read by: Interpret - Radiologist Re-Eval/Medical Decision Med Decision/Clinical Course 56-year-old presents with palpitations and some chest discomfort just weeks after a Sung fundoplication. Chronic enzymes are negative 2 and EKG is unremarkable apart from junctional extrasystoles with some mild aberration. She had an elevated d-dimer and a negative CT angiogram. Discharged now in stable condition with double dose omeprazole. Reassured on the subject of her palpitations. She had just had a preoperative evaluation including a sestamibi that was negative. Low risk for cardiac issues tonight. Time of Eval: 03:53 Patient Status: Condition improved Re-Evaluation/Progress Note: Discussed CT and lab results and plan for discharge. Pt understands and agrees with plan. Counseled Regarding: Diagnosis, Lab results, Need for follow-up, When/why to return to ED Discharge & Departure Primary Impression: Non-cardiac chest pain Additional Impressions: Chest pain with low risk for cardiac etiology Palpitations Atrial extrasystoles Disposition: Home Discharge Condition All VS Reviewed: Yes Condition: Improved Patient Instructions: Esophageal Spasm (ED) Additional Instructions: Your chest pain is apparently not of cardiac origin. More likely is esophageal pain. Your enzymes are negative 2, your CT of her chest showed no evidence of pulmonary embolus. No other dangerous causes were discovered. Double up on your Prilosec to twice daily. Call your doctor Saturday for follow-up. Return if any immediate issues over the weekend. Referrals: Michelle Perez MD (PCP) Scribe Attestation Portions of this note were transcribed by Shandra Leonardo. I, Dr. Mandujano personally performed the history, physical exam and medical decision-making; I reviewed and confirmed the accuracy of the information in the transcribed note. Signed by: Anil Marion, 02/16/2017. copies to: Michelle Perez MD, Christopher W MD Feb 15, 2017 23:32 SHANDRA LEONARDO Feb 15, 2017 23:41
[2017-02-15] MEDS ORDERED: Nitroglycerin 2% 1 Gm Ointment TOPICAL ONE (23:55)
[2017-02-16 00:01] LABS: BASOPHILS % (AUTO) 0.2 % (0-3); EOSINOPHILS % (AUTO) 4.8 % (0-5); MONOCYTES % (AUTO) 11.1 % (4-12); Mean Corpuscular Hemoglobin 34.1 pg (27.0-35.0); Mean Corpuscular Volume 103.9 fL (81-100); NEUTROPHILS % (AUTO) 40.7 % (40-74); Platelet Count 221 bil/L (150-400)
[2017-02-16 00:06] VITALS: BP 127/52
[2017-02-16 00:40] LABS: TROPONIN T 0.01 ug/L (0.0-0.011)
[2017-02-16 01:08] LABS: D-Dimer 1.18 mg/L FEU (<0.50); INR 0.96 ratio
[2017-02-16 01:51] VITALS: BP 121/45; PULSE 72; RESP 18; O2SAT 98
[2017-02-16] MEDS ORDERED: OMEP20TA86 PO (04:00)
[2017-02-16 04:22] VITALS: BP 114/87; PULSE 72; RESP 20; O2SAT 96
--- NOTE | 2017-02-16 08:06 | DRSVH ---
PROCEDURE: CT ANGIO CHEST PULMONARY EMBOLISM ([id number]) INDICATIONS: sob chest pain elevated dimer TECHNIQUE: After the administration of intravenous contrast, 2 mm thick sections acquired from the pulmonary api don to the posterior costophrenic angles. 3-dimensional maximum intensity projection (MIP) coronal a nd sagittal reformats were then acquired through the thorax. For radiation dose reduction, the follo wing was used: automated exposure control, adjustment of mA and/or kV according to patient size. COMPARISON: None. FINDINGS: Image quality: Excellent. Pulmonary arteries: Pulmonary arteries are normal in size, and demonstrate no intraluminal filling d efects to suggest central pulmonary embolism. Lungs and pleura: Lungs are clear. No pleural effusions or pneumothorax. Central and peripheral ai rways are patent. Mediastinum: Heart size is normal, without pericardial effusion. No mediastinal or hilar adenopathy . Thoracic aorta is normal in caliber and enhancement. Esophagus is normal in caliber, without hiat al hernia. Bones and chest wall: No suspicious bony lesions. Ribs and thoracic spine appear intact throughout. Thyroid gland is unremarkable. No axillary or supraclavicular adenopathy. Left breast implant is noted. Abdomen: Visualized upper abdominal solid organs appear normal in the early arterial phase of enhanc ement. IMPRESSION: 1. No visualized pulmonary embolism. Lungs are clear. Dictated by: Stephanie Pardo M.D. on 02/16/2017 at 8:03 Approved by: Stephanie Pardo M.D. on 02/16/2017 at 8:05
--- NOTE | 2017-02-16 09:03 | DRSVH ---
PROCEDURE: X-RAY CHEST ONE VIEW, PORTABLE ([id number]) INDICATIONS: chest pain TECHNIQUE: One view of the chest was acquired. COMPARISON: [facility], CT, CT ANGIO CHEST PE, 02/16/2017, 2:34. [facility], CR, XR CHEST 1VW (PORTABLE), 01/27/2016, 17:01. [facility], CR, XR CHEST 1VW (PORTABLE), 08/15/2016, 4:27. FINDINGS: Surgical changes and devices: None. Lungs and pleura: No pleural effusions or pneumothorax. Lungs are clear. Mediastinum: Mediastinal contours appear normal. Heart size is normal. Bones and chest wall: No suspicious bony lesions. Overlying soft tissues appear unremarkable. IMPRESSION: No acute pulmonary process. Dictated by: Stephanie Pardo M.D. on 02/16/2017 at 9:01 Approved by: Stephanie Pardo M.D. on 02/16/2017 at 9:02
== END 2017-02-16 04:02 | disposition home or self-care (01) ==
LOC: SED 23:16
DX: R07.89 Other chest pain (principal); I49.49 Other premature depolarization; R00.2 Palpitations; M79.89 Other specified soft tissue disorders; J45.909 Unspecified asthma, uncomplicated; K21.9 Gastro-esophageal reflux disease without esophagitis; F32.9 Major depressive disorder, single episode, unspecified; E03.9 Hypothyroidism, unspecified; Z98.890 Other specified postprocedural states; Z88.0 Allergy status to penicillin; Z88.5 Allergy status to narcotic agent; Z88.6 Allergy status to analgesic agent; Z88.8 Allergy status to other drugs, medicaments and biological substances; Z91.040 Latex allergy status; Z91.048 Other nonmedicinal substance allergy status
CPT/HCPCS: 36415; 71010; 71275; 80053; 83735; 83880; 84484; 85025; 85378; 85610; 85730; 93005; 99285; Q9967